=== PATIENT | female | born 1945 | race Caucasian/White ===

== ENCOUNTER → 2019-11-21 14:54 | Outpatient (BNVA) | payer MEDICARE, OTHER, SELFPAY | PROVIDERS: Family Provider Family Medicine; PCP Family Medicine; Visit Provider Urology | DX: N30.20 Other chronic cystitis without hematuria (principal) | CPT/HCPCS: 81001 ==

== ENCOUNTER 2020-09-23 12:38 | Outpatient (CLI) | payer MEDICARE, OTHER, SELFPAY ==
--- NOTE | 2020-09-23 12:48 | MR_ITS ---
WS: [id number] MRI HEAD WITHOUT CONTRAST TECHNIQUE: Sagittal T1, T2 axial, T2 axial FLAIR, axial and coronal T1 images, axial susceptibility w eighted imaging, axial diffusion weighted images, and coronal T2 images were obtained. CLINICAL INFORMATION: DYSPHAGIA, SUBACUTE COGNITIVE CHANGE COMPARISON: None. FINDINGS: Patchy partially restricted diffusion involving the left parietal occipital junction, subinsular seamus ex, and left anterior temporal lobe consistent with subacute ischemia. Small amount of hemosiderin in volving the left parietal occipital infarct bed. Small amount of T1 hyperintense laminar necrosis inv olving the left parietal cortex. Mild associated edema in the left parietal cortex. No mass effect or midline shift. Chronic lacunar infarct left olvera radiata. Mild small vessel changes. Moderate parenchymal volume loss. Mild small vessel changes in the johny. N ormal posterior fossa. Normal vascular flow voids at the skull base. No extra axial fluid collections . Normal optic chiasm and pituitary infundibulum. Temporal lobes and hippocampal formations are normal in appearance. Tiny punctate focus of hemosiderin in the left posterior parietal lobe. Paranasal sinu ses and mastoid air cells are well aerated. 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 Evidence of subacute ischemia involving the left parietal occipital junctio n with patchy foci extending into the left anterior temporal lobe and subinsula r cortex. 2. Small amount of hemosiderin within the left parietal occipital infarct. Mil d edema. No mass effect or midline shift. 3. Mild small vessel changes. Moderate parenchymal volume loss. 4. Chronic lacunar infarcts involving the left olvera radiata and genu of the corpus callosum. 5. Paranasal sinuses and mastoid air cells well aerated.
--- NOTE | 2020-09-23 12:56 | MR_ITS ---
WS: [id number] MRA HEAD TECHNIQUE: Axial 3-D TOF images obtained with axial images and axial, sagittal, and coronal 2-D refor matted images. CLINICAL INFORMATION: DYSPHAGIA/SUBACUTE COGNITIVE CHANGE COMPARISON: None. FINDINGS: Distal vertebral arteries are patent. Dominant distal left vertebral artery. Basilar artery is patent . Moderate segmental atheromatous disease involving both ASTHMA EDUCATOR territories. Distal vessels appear paten t. Both ICAs are patent at the skull base. Normal vascularity to the FAINA and MCA territories bilaterally . Mild stenosis distal left M1 segment. Hypoplastic right A1 segment. No evidence of high-grade proxi mal stenosis. MR/MR angio head wo con [id number] IMPRESSION: 1. Moderate multifocal segmental atheromatous disease involving both ASTHMA EDUCATOR luis antonio tories bilaterally. Distal vessels appear patent. 2. Symmetric vascularity to the FAINA and MCA territories bilaterally. 3. Absent right A1 segment. 4. Mild stenosis distal left M1 segment.
== END 2020-09-23 12:39 | disposition home or self-care (01) ==
LOC: RADWPI 12:42
PROVIDERS: PCP Family Medicine; Visit Provider Family Medicine
DX: R13.19 Other dysphagia (principal); R41.82 Altered mental status, unspecified; I63.81 Other cerebral infarction due to occlusion or stenosis of small artery
CPT/HCPCS: 70544; 70551

== ENCOUNTER 2020-10-10 08:18 | Outpatient (CLI) | payer MEDICARE, OTHER, SELFPAY ==
--- NOTE | 2020-10-10 08:20 | USCV_ITS ---
Angela Colvin Age: 75 Gender: F : 1945 Exam Date: 10/10/2020 08:58 Ordering Phys: Guerrero Carrillo MD Technologist: Agustin Alex Exam Location: [facility] [place] Indication: tia Risk Factors: None Previous Vascular Surgery: Right Brachial BP: / Left Brachial BP: / Right Left Velocity (cm/s) Spectral Plaque Velocity (cm/s) Spectral Plaque Syst/Diast Broadening Syst/Diast Broadening 55.50/ 17.10 Prox CCA 53.80 / 17.90 59.80/ 17.90 Mid CCA 55.50 / 17.10 67.50/ 21.40 Distal CCA 48.70 / 16.20 50.40/ 12.00 Prox ICA 43.90 / 17.30 64.90/ 14.50 Mid ICA 47.20 / 19.00 61.50/ 11.10 Distal ICA 54.20 / 21.70 52.10 ECA 51.50 0.96 ICA/CCA 0.98 Antegrade Vertebral Antegrade 43.00/ 20.00 cm/s 74.60/ 21.00 cm/s Bi Subclavian Bi 71.40 FINDINGS Minimal plaques at the bifurcation and proximal carotid arteries bilaterally. Intimal thickening in the common carotid arteries bilaterally. Antegrade flow of the vertebral arteries bilaterally Normal Doppler flow velocity in the left subclavian artery. Right subclavian artery was not identified. CONCLUSIONS Minimal plaques at the bifurcation and proximal carotid arteries bilaterally with less than 50% stenosis . Intimal thickening in the common carotid arteries bilaterally. No significant stenosis in the vertebral or external carotid arteries bilaterally Dr Daniel Dallas MD [facility] (Electronically Signed) Final Date: 10 October 2020 18:31 S
--- NOTE | 2020-10-10 08:20 | USCV_ITS ---
Vinicius Angela Age: 75 Gender: F : 1945 Exam Date: 10/10/2020 08:42 Ordering Phys: Guerrero Carrillo MD Technologist: Augstin Alex Exam Location: [facility] [place] Indication: TIA BP: 124 / 72 HR: 65 Rhythm: Sinus Technical Quality: Fair MEASUREMENTS (Male / Female) Normal Values 2D ECHO LV Diastolic Diameter PLAX 3.6 cm 4.2 - 5.9 / 3.9 - 5.3 cm LV Systolic Diameter PLAX 2.3 cm IVS Diastolic Thickness 1.6 cm 0.6 - 1.0 / 0.6 - 0.9 cm IVS Systolic Thickness 1.7 cm LVPW Diastolic Thickness 1.1 cm 0.6 - 1.0 / 0.6 - 0.9 cm LVPW Systolic Thickness 1.8 cm LVOT Diameter 2.0 cm LV Ejection Fraction 2D Teich 68.1 % LV Ejection Fraction MOD 2C 69.7 % LV Ejection Fraction 2C AL 69.6 % LA Diameter 3.6 cm LA Width 3.3 cm LA Height 4.7 cm RA Width 3.3 cm RA Height 5.0 cm Aorta at Sinotubular Diameter 2.5 cm M-MODE LV Diastolic Diameter MM 3.3 cm 4.2 - 5.9 / 3.9 - 5.3 cm LV Systolic Diameter MM 2.0 cm LV Ejection Fraction MM Teich 70.5 % IVS Diastolic Thickness MM 1.9 cm 0.6 - 1.0 / 0.6 - 0.9 cm IVS Systolic Thickness MM 2.0 cm LVPW Diastolic Thickness MM 1.8 cm 0.6 - 1.0 / 0.6 - 0.9 cm LVPW Systolic Thickness MM 2.1 cm RV Diastolic Diameter MM 2.3 cm Aortic Annulus Diameter 3.0 cm LA Ao Ratio MM 1.3 MV E Point Septal Separation 0.7 cm DOPPLER AV Peak Velocity 145.0 cm/s LVOT Peak Velocity 84.0 cm/s AV Area Cont Eq vti 1.6 cm squared AV Area Cont Eq pk 1.9 cm squared MV Area PHT 5.0 cm squared Mitral E to A Ratio 0.8 MV E' Velocity 31.0 cm/s Mitral E to MV E' Ratio 7.9 Mitral E to LV E' Lateral Ratio 8.1 Mitral E to LV E' Septal Ratio 7.8 TR Peak Velocity 195.0 cm/s TR Peak Gradient 15.2 mmHg TV Peak E Velocity 78.0 cm/s Right Atrial Pressure 3.0 mmHg Pulmonary Artery Systolic Pressu 18.2 mmHg PV Peak Velocity 98.0 cm/s FINDINGS Left Ventricle Normal left ventricular size. LV systolic function is normal with EF of 60 to 65%. No regional wall motion abnormalities are seen. Grade 1 diastolic dysfunction is noted. Right Ventricle The right ventricle is normal in size and function. Right Atrium The right atrium is normal in size. Left Atrium The left atrium is normal in size. Mitral Valve Structurally normal mitral valve without significant stenosis or prolapse. There is no mitral regurgitation. Aortic Valve Not well-visualized. Grossly appears thickened. No significant aortic stenosis. There is no aortic regurgitation. Tricuspid Valve Not well-visualized. No significant stenosis or regurgitation. Insufficient TR jet to calculate RVSP. Pulmonic Valve Not well-visualized. Pericardium Normal pericardium without effusion. Aorta Normal ascending aorta dimension. CONCLUSIONS LV systolic function is normal with EF of 60 to 65%. Grade 1 diastolic dysfunction is noted. No significant valvular heart disease is seen. No comparison studies are available. Michael Burroughs MD (Electronically Signed) Final Date: 18 October 2020 09:30 S
== END 2020-10-10 08:19 | disposition home or self-care (01) ==
LOC: US 08:18
PROVIDERS: PCP Family Medicine; Visit Provider Family Medicine
DX: G45.9 Transient cerebral ischemic attack, unspecified (principal)
CPT/HCPCS: 93306; 93880

== ENCOUNTER 2022-06-20 11:23 | Emergency (ER) | payer MEDICARE, OTHER, SELFPAY ==
[2022-06-20] VITALS (7 sets, daily range): BP systolic 122–146; BP diastolic 68–74; PULSE 78–88; RESP 16; TEMP 36.6; O2SAT 94–98; BMI 27.6
--- NOTE | 2022-06-20 11:26 | ECG_ITS ---
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 Measurements Intervals Elida Rate: 83 P: 27 [place]: 175 QRS: -18 QRSD: 74 T: 65 QT: 338 QTc: 398 Interpretive Statements SINUS RHYTHM LOW QRS VOLTAGE IN PRECORDIAL LEADS [QRS DEFLECTION < 1.0 mV IN CHEST LEADS] POSSIBLE ANTERIOR MYOCARDIAL INFARCTION , PROBABLY OLD [30 ms Q WAVE IN V3/V4, OR R < 0.2 mV IN V4] No previous ECG available for comparison Electronically Signed On 06-21-2022 22:01:15 CDT by Michael Burroughs M.D. [id number]
--- NOTE | 2022-06-20 11:26 | CTR_ITS ---
PROCEDURE INFORMATION: Exam: CTA Head With Contrast, Arteriography Exam date and time: 06/20/2022 11:19 AM Age: 76 years old Clinical indication: Speech disturbance and paralysis, transient of limb; Slurred speech; Additional info: Hemiparesis TECHNIQUE: Imaging protocol: Computed tomographic angiography of the head with contrast. Exam focused on the arteries. 3D rendering (Not supervised by radiologist): MIP and/or 3D reconstructed images were created by the technologist. Radiation optimization: All CT scans at this facility use at least one of these dose optimization techniques: automated exposure control; mA and/or kV adjustment per patient size (includes targeted exams where dose is matched to clinical indication); or iterative reconstruction. Contrast material: OMNI 350; Contrast volume: 100 ml; Contrast route: INTRAVENOUS (IV); COMPARISON: MR angio head wo con [id number] 09/23/2020 12:47 PM RADIATION DOSE METRICS: Total DLP (mGy-cm): 907.92 FINDINGS: ANTERIOR CIRCULATION: Right internal carotid artery: Intracranial segment is patent with no significant stenosis. No aneurysm. Right middle cerebral artery: No occlusion or significant stenosis. No aneurysm. Right anterior cerebral artery: There is aplastic right A1 segment. The right A2 segment is normal. Left internal carotid artery: Intracranial segment is patent with no significant stenosis. No aneurysm. Left middle cerebral artery: There is a cut off of the left middle cerebral artery seen on image 13/247 consistent with a clot. Enhancing vessels are seen in the left cerebral hemisphere likely from collaterals. Left anterior cerebral artery: No occlusion or significant stenosis. No aneurysm. POSTERIOR CIRCULATION: Right vertebral artery: No occlusion or significant stenosis. No aneurysm. Left vertebral artery: No occlusion or significant stenosis. No aneurysm. Basilar artery: No occlusion or significant stenosis. No aneurysm. Right posterior cerebral artery: No occlusion or significant stenosis. No aneurysm. Left posterior cerebral artery: No occlusion or significant stenosis. No aneurysm. Brain: Noncontrast CT demonstrates an old infarct left posterior parietal lobe. There is an old left basal ganglia infarct. There is moderate central and cortical atrophy with old posterior bilateral frontal infarcts. There is no intracranial bleed. Cerebral ventricles: No ventriculomegaly. Bones/joints: Unremarkable. No acute fracture. Soft tissues: Unremarkable. PROCEDURE INFORMATION: Exam: CTA Neck With Contrast Exam date and time: 06/20/2022 11:19 AM Age: 76 years old Clinical indication: Speech disturbance and paralysis, transient of limb; Slurred speech; Additional info: Hemiparesis TECHNIQUE: Imaging protocol: Computed tomographic angiography of the neck with contrast. 3D rendering (Not supervised by radiologist): MIP and/or 3D reconstructed images were created by the technologist. Radiation optimization: All CT scans at this facility use at least one of these dose optimization techniques: automated exposure control; mA and/or kV adjustment per patient size (includes targeted exams where dose is matched to clinical indication); or iterative reconstruction. Contrast material: OMNI 350; Contrast volume: 100 ml; Contrast route: INTRAVENOUS (IV); COMPARISON: MR angio head wo con [id number] 09/23/2020 12:47 PM RADIATION DOSE METRICS: Total DLP (mGy-cm): 454.18 FINDINGS: Right common carotid artery: No stenosis. No dissection or occlusion. Right internal carotid artery: No stenosis of the extracranial segment. No dissection or occlusion. Right external carotid artery: No occlusion or stenosis of the origin. Left common carotid artery: No stenosis. No dissection or occlusion. Left internal carotid artery: No stenosis of the extracranial segment. No dissection or occlusion. Left external carotid artery: No occlusion or stenosis of the origin. Right vertebral artery: No stenosis. No dissection or occlusion. Left vertebral artery: No stenosis. No dissection or occlusion. Right subclavian artery: Aberrant origin right subclavian artery. Soft tissues: Normal. No significant soft tissue swelling. Bones/joints: No acute fracture. 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 IMPRESSION: No evidence of a hemodynamically significant stenosis. REFERENCES: NASCET CRITERIA. The degree of stenosis in the cervical segment of the internal carotid artery is based on NASCET criteria. Normal is no stenosis. Mild is less than 50% stenosis. Moderate is 50-69% stenosis. Severe is 70% to 99% stenosis. Total occlusion is no detectable patent lumen.
[2022-06-20] MEDS: iohexol 350 mg/mL 100 mL Btl IV (11:35)
[2022-06-20 11:38] LABS: Glucose Point of Care 117 mg/dL (70-110)
[2022-06-20 11:47] LABS: Basophils % 0.4 %; Eosinophils # 0.3 10^3/uL (0.0-0.8); Eosinophils % 3.9 %; Hematocrit 37.6 % (37.0-47.0); Hemoglobin 12.6 g/dL (11.5-15.3); Lymphocytes # 2.4 10^3/uL (0.8-4.8); Lymphocytes % 34.4 %; Mean Corpuscular HGB Conc 33.5 g/dL (30.0-36.0); Mean Corpuscular Hemoglobin 35.1 pg (28.0-34.0); Mean Corpuscular Volume 104.7 fl (81-99); Mean Platelet Volume 9.1 fL (7.4-10.4); Monocytes # 0.9 10^3/uL (0.2-0.9); Monocytes % 12.8 %; Neutrophils # 3.42 10^3/uL (1.8-7.7); Neutrophils % 48.2 %; Nucleated Red Blood Cells % 0 %; Platelet Count 233 10^3/cmm (130-400); Red Blood Count 3.59 10^6/uL (4.1-5.3); Red Cell Distribution Width 12.5 % (12.1-15.1); White Blood Count 7.1 10^3/uL (4.0-10.0)
--- NOTE | 2022-06-20 11:49 | ED_ITS ---
HPI - General Adult General: Chief complaint: Neuro Symptoms/Deficit Stated complaint: stroke like symptoms Time Seen by Provider: 06/20/22 11:26 History of Present Illness: Patient is a 76-year-old female with a history of recent right breast biopsy, chronic cystitis who presents emergency room with new onset of right-sided weakness and language difficulty since 10:40 AM per EMS. However patient tells me that she has had the symptoms since 10 AM this morning. She denies any anticoagulation use. EMS, patient had interval improvement in symptoms with complete resolution of symptoms followed by resumption of symptoms. Onset:10am to 1040am Duration:ongoing Location:home Severity:severe Associated symptoms: Deny chest pain, dyspnea, nausea, rash, palpitations or vomiting Review of Systems Const: Denies: fever(s) or chills Eyes: Denies: change in vision ENMT: Denies: mouth pain Card: Denies: chest pain or palpitations Resp: Denies: dyspnea or non-productive cough GI: Denies: abdominal pain, nausea, vomiting or diarrhea : Denies: dysuria Musc: Denies: extremity pain Skin/Breast: Denies: rash or new lesions Neuro: Reports: weakness in extremities (+R sided weakness, +R facial droop,+language difficulty) Psych: Reports: other (Normal mood) Darren/Lymph: Denies: easy bruising PFSH ED 2 PFSH: Medical History Chronic cystitis Pelvic floor relaxation Surgical History Hx of cataract surgery Family History Father CAD (coronary artery disease) MOTHER UNKNOWN CAUSE Social History Smoking and tobacco status: never smoked Alcohol intake: never Adopted: No Caregiver/support person: No Lives independently: No Household members: spouse Marital status: Current occupational status: retired History of recent travel: No Physical Exam Const: COMMON NORMALS: alert HENMT: COMMON NORMALS: atraumatic HEAD & SCALP: atraumatic MOUTH: moist mucous membranes not abnormal Eye: COMMON NORMALS: EOMs intact bilaterally and conjunctivae normal CONJUNCTIVA: Yes conjunctivae normal Neck/C-Spine: COMMON NORMALS: full ROM and supple Resp: COMMON NORMALS: normal respiratory effort and clear to auscultation bilaterally AUSCULTATION: clear to auscultation bilaterally Cardio: COMMON NORMALS: regular rate RATE: regular rate GI: COMMON NORMALS: Soft to palpation and non-tender PALPATION: Yes Soft to palpation Extremity: COMMON NORMALS: full ROM Neuro: SENSORIUM/ORIENTATION: Yes alert OTHER: NEURO: NIHSS: 17 1. Level of Consciousness A) LOC Responsiveness 0 B) LOC Questions 1 C) LOC Commands 0 2. Horizontal Eye Movement 2 3. Visual field test 0 4. Facial Palsy 3 5. Motor Arm 4 6. Motor Leg 4 7. Limb Ataxia 1 8. Sensation 2 9. Language 2 10. Speech 1 11. Extinction and Inattention 1 PSYCH: Normal mood and affect. Psych: COMMON NORMALS: speech normal SPEECH: Yes normal speech MOOD & AFFECT: Yes euthymic mood Course Vital Signs: Vital signs: Vital Signs Temperature 97.9 F 06/20/22 11:34 Pulse Rate 88 06/20/22 11:34 Respiratory Rate 16 06/20/22 11:34 Blood Pressure 146/71 06/20/22 11:34 Pulse Oximetry 94 06/20/22 11:34 Oxygen Delivery Me thod 06/20/22 11:34 MDM - General Adult Medical Decision Making Patient is a 76-year-old female with a history of stroke in 2020, recent right breast biopsy, chronic cystitis who presents emergency room with new onset of right-sided weakness and language difficulty between 10am to 1040am. Patient is noted to have NIH stroke scale of 17. Case was discussed with [facility] neurology which recommended tPA as patient is within the window. Patient does not have any contraindication to tPA. She received TPA today in consultation of Dr. Naylor from Neurology at [facility]. Imaging studies showed new left M1 stroke. Case was discussed with Dr. Yeung who agreed with the transfer to [facility] for management of acute stroke after TPA. Disposition: Transfer to outside hospital Lab Data : 06/20/22 11:39 06/20/22 11:39 Radiology Impressions Head/Neck CTA 06/20/22 11:26 IMPRESSION: Old left-sided infarcts with occlusion of the left M1 segment. IMPRESSION: No evidence of a hemodynamically significant stenosis. REFERENCES: NASCET CRITERIA. The degree of stenosis in the cervical segment of the internal carotid artery is based on NASCET criteria. Normal is no stenosis. Mild is less than 50% stenosis. Moderate is 50-69% stenosis. Severe is 70% to 99% stenosis. Total occlusion is no detectable patent lumen. ADDENDUM: 06/20/22 1212 THIS REPORT CONTAINS FINDINGS THAT MAY BE CRITICAL TO PATIENT CARE. The findings were verbally communicated by me to JACLYN CABRERA at 12:09 PM FIRE ENGINE PUMP OPERATOR on 06/20/2022. The findings were acknowledged and understood. Laboratory Results WBC 7.1 10^3/uL (4.0-10.0) 06/20/22 11:39 RBC 3.59 10^6/uL (4.1-5.3) L 06/20/22 11:39 Hgb 12.6 g/dL (11.5-15.3) 06/20/22 11:39 Hct 37.6 % (37.0-47.0) 06/20/22 11:39 MCV 104.7 fl (81-99) H 06/20/22 11:39 MCH 35.1 pg (28.0-34.0) H 06/20/22 11:39 MCHC 33.5 g/dL (30.0-36.0) 06/20/22 11:39 RDW 12.5 % (12.1-15.1) 06/20/22 11:39 Plt Count 233 10^3/cmm (130-400) 06/20/22 11:39 MPV 9.1 fL (7.4-10.4) 06/20/22 11:39 Neut % (Auto) 48.2 % 06/20/22 11:39 Lymph % (Auto) 34.4 % 06/20/22 11:39 [place] % (Auto) 12.8 % 06/20/22 11:39 Eos % (Auto) 3.9 % 06/20/22 11:39 Baso % (Auto) 0.4 % 06/20/22 11:39 Neut # (Auto) 3.42 10^3/uL (1.8-7.7) 06/20/22 11:39 Lymph # (Auto) 2.4 10^3/uL (0.8-4.8) 06/20/22 11:39 [place] # (Auto) 0.9 10^3/uL (0.2-0.9) 06/20/22 11:39 Eos # (Auto) 0.3 10^3/uL (0.0-0.8) 06/20/22 11:39 Baso # (Auto) 0.0 10^3/uL (0.0-0.1) 06/20/22 11:39 Nucleated RBC % (auto) 0 % 06/20/22 11:39 Nucleated RBCs # 0.0 /100WBC 06/20/22 11:39 PT 14.90 SECONDS (12.1-14.9) 06/20/22 11:39 INR 1.14 (0.8-1.2) 06/20/22 11:39 APTT 27.9 SECONDS (23.9-36.7) 06/20/22 11:39 Sodium 124 mmol/L (136-145) L 06/20/22 11:39 Potassium 3.8 mmol/L (3.5-5.1) 06/20/22 11:39 Chloride 93 mmol/L (98-107) L 06/20/22 11:39 Carbon Dioxide 24 mmol/L (22-29) 06/20/22 11:39 Anion Gap 10.8 (5-19) 06/20/22 11:39 BUN 12 mg/dL (8-23) 06/20/22 11:39 Creatinine 0.8 mg/dL (0.5-0.9) 06/20/22 11:39 GFR Calculation Not Reportable 06/20/22 11:39 Glucose 116 mg/dL (65-115) H 06/20/22 11:39 POC Glucose 117 mg/dL (70-110) H 06/20/22 11:36 Calculated Osmolality 259 mOsm/kg (285-295) L 06/20/22 11:39 Calcium 8.8 mg/dL (8.5-10.5) 06/20/22 11:39 Total Bilirubin 0.5 mg/dL (0.15-1.2) 06/20/22 11:39 AST 20 U/L (0-32) 06/20/22 11:39 ALT 8 U/L (0-33) 06/20/22 11:39 Alkaline Phosphatase 73 U/L (35-105) 06/20/22 11:39 Total Protein 6.0 g/dL (6.6-8.7) L 06/20/22 11:39 Albumin 3.3 g/dL (3.5-5.2) L 06/20/22 11:39 Globulin 2.7 g/dL (1.3-4.6) 06/20/22 11:39 Imaging Data Other Imaging: Radiologist's impression: [employer] [place] [address] CT Scan Report Signed Patient: Angela Colvin Unit #: [id number] : 1945 Age/Sex: 76 / F ADM Date: 06/20/22 Loc: ER Room/Bed: Attending Dr: Ordering Provider/Ordering MD: Jaclyn Cabrera MD Date of Service: 06/20/22 Procedure(s): CT angio headneck* [id number] Accession Number(s): [id number] Report Number: [id number] PROCEDURE INFORMATION: Exam: CTA Head With Contrast, Arteriography Exam date and time: 06/20/2022 11:19 AM Age: 76 years old Clinical indication: Speech disturbance and paralysis, transient of limb; Slurred speech; Additional info: Hemiparesis TECHNIQUE: Imaging protocol: Computed tomographic angiography of the head with contrast. Exam focused on the arteries. 3D rendering (Not supervised by radiologist): MIP and/or 3D reconstructed images were created by the technologist. Radiation optimization: All CT scans at this facility use at least one of these dose optimization techniques: automated exposure control; mA and/or kV adjustment per patient size (includes targeted exams where dose is matched to clinical indication); or iterative reconstruction. Contrast material: OMNI 350; Contrast volume: 100 ml; Contrast route: INTRAVENOUS (IV);? COMPARISON: MR angio head wo con [id number] 09/23/2020 12:47 PM RADIATION DOSE METRICS: Total DLP (mGy-cm): 907.92 FINDINGS: ANTERIOR CIRCULATION: Right internal carotid artery: Intracranial segment is patent with no significant stenosis. No aneurysm. Right middle cerebral artery: No occlusion or significant stenosis. No aneurysm.? Right anterior cerebral artery: There is aplastic right A1 segment. The right A2 segment is normal. Left internal carotid artery: Intracranial segment is patent with no significant stenosis. No aneurysm. Left middle cerebral artery: There is a cut off of the left middle cerebral artery seen on image 13/247 consistent with a clot.? Enhancing vessels are seen in the left cerebral hemisphere likely from collaterals. Left anterior cerebral artery: No occlusion or significant stenosis. No aneurysm.? POSTERIOR CIRCULATION: Right vertebral artery: No occlusion or significant stenosis. No aneurysm.? Left vertebral artery: No occlusion or significant stenosis. No aneurysm.? Basilar artery: No occlusion or significant stenosis. No aneurysm. Right posterior cerebral artery: No occlusion or significant stenosis. No aneurysm.? Left posterior cerebral artery: No occlusion or significant stenosis. No aneurysm.? Brain: Noncontrast CT demonstrates an old infarct left posterior parietal lobe. There is an old left basal ganglia infarct. There is moderate central and cortical atrophy with old posterior bilateral frontal infarcts. There is no intracranial bleed. Cerebral ventricles: No ventriculomegaly. Bones/joints: Unremarkable. No acute fracture. Soft tissues: Unremarkable. PROCEDURE INFORMATION: Exam: CTA Neck With Contrast Exam date and time: 06/20/2022 11:19 AM Age: 76 years old Clinical indication: Speech disturbance and paralysis, transient of limb; Slurred speech; Additional info: Hemiparesis TECHNIQUE: Imaging protocol: Computed tomographic angiography of the neck with contrast. 3D rendering (Not supervised by radiologist): MIP and/or 3D reconstructed images were created by the technologist. Radiation optimization: All CT scans at this facility use at least one of these dose optimization techniques: automated exposure control; mA and/or kV adjustment per patient size (includes targeted exams where dose is matched to clinical indication); or iterative reconstruction. Contrast material: OMNI 350; Contrast volume: 100 ml; Contrast route: INTRAVENOUS (IV);? COMPARISON: MR angio head con [id number] 09/23/2020 12:47 PM RADIATION DOSE METRICS: Total DLP (mGy-cm): 454.18 FINDINGS: Right common carotid artery: No stenosis. No dissection or occlusion. Right internal carotid artery: No stenosis of the extracranial segment. No dissection or occlusion. Right external carotid artery: No occlusion or stenosis of the origin.? Left common carotid artery: No stenosis. No dissection or occlusion. Left internal carotid artery: No stenosis of the extracranial segment. No dissection or occlusion. Left external carotid artery: No occlusion or stenosis of the origin.? Right vertebral artery: No stenosis. No dissection or occlusion. Left vertebral artery: No stenosis. No dissection or occlusion. Right subclavian artery:? Aberrant origin right subclavian artery. Soft tissues: Normal. No significant soft tissue swelling. Bones/joints: No acute fracture. 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 CT/CT angio headneck* [id number] IMPRESSION: Old left-sided infarcts with occlusion of the left M1 segment. ? ? IMPRESSION: No evidence of a hemodynamically significant stenosis. ? REFERENCES: NASCET CRITERIA. The degree of stenosis in the cervical segment of the internal carotid artery is based on NASCET criteria. Normal is no stenosis. Mild is less than 50% stenosis. Moderate is 50-69% stenosis. Severe is 70% to 99% stenosis. Total occlusion is no detectable patent lumen. ? Dictated By: Nik Prabhakar MD Signed By: Nik Prabhakar MD Signed Date/Time: 06/20/22 1204 DD/ 1119 Critical Care Time Critical Care Time: Critical Care Time: Yes Total Critical Care Time: 35 Attestation: The high probability of a clinically significant, sudden or life threatening deterioration of the patient's neurological system(s) required my full and direct attention, intervention and personal management. The critical care time is as shown. This time is in addition to time spent performing any reported procedures but includes the following: [x] Data and vital sign review and interpretation [x] Patient assessment, examination and intervention [x] Documentation [x] Medication orders and management Discharge Plan Discharge Patient Disposition: Transfer to ED Clinical Impression: Acute ischemic stroke Condition: Stable Prescriptions: No Action cefuroxime axetil 500 mg tablet See Rx Instructions .ROUTE .COMPLEX Qty: 60 2RF Dose Instruction: Take 1 tablet by mouth twice daily Rx Instructions: Take 1 tablet by mouth twice daily Referrals: Guerrero Carrillo MD [Primary Care Provider] - Coding Level of Care Code ED Manager Pharmacy for Chg Fwd Exam Comprehensive
[2022-06-20 12:02] LABS: INR 1.14 (0.8-1.2); Partial Thromboplastin Time 27.9 SECONDS (23.9-36.7)
[2022-06-20 12:16] LABS: Alanine Aminotransferase 8 U/L (0-33); Albumin Level 3.3 g/dL (3.5-5.2); Alkaline Phosphatase 73 U/L (35-105); Anion Gap 10.8 (5-19); Aspartate Amino Transferase 20 U/L (0-32); Blood Urea Nitrogen 12 mg/dL (8-23); Calcium 8.8 mg/dL (8.5-10.5); Carbon Dioxide 24 mmol/L (22-29); Chloride 93 mmol/L (98-107); Globulin 2.7 g/dL (1.3-4.6); Glucose 116 mg/dL (65-115); Osmolality Calculated 259 mOsm/kg (285-295); Potassium 3.8 mmol/L (3.5-5.1); Sodium 124 mmol/L (136-145); Total Bilirubin 0.5 mg/dL (0.15-1.2)
--- NOTE | 2022-06-20 13:01 | PC.NURSE ---
stroke alert called 1108, pt arrived 1133, tpa started 1146
== END 2022-06-20 14:20 ==
PROVIDERS: Emergency Provider Emergency Medicine; PCP Family Medicine
DX: I63.89 Other cerebral infarction (principal)
CPT/HCPCS: 36416; 70496; 70498; 80053; 82962; 85025; 85610; 85730; 93005; 96365; 99285; J2997; Q9967

== ENCOUNTER 2022-10-06 19:52 | Observation (INO) | payer MEDICARE, OTHER, SELFPAY ==
[2022-10-06] VITALS (8 sets, daily range): BP systolic 144–155; BP diastolic 73–86; PULSE 72–94; RESP 14–20; TEMP 37.4; O2SAT 94–96; BMI 24.2
--- NOTE | 2022-10-06 19:57 | ED_ITS ---
HPI - Altered Mental Status General: Chief Complaint: Neuro Symptoms/Deficit Stated Complaint: Stroke 4\15 Unresponsive Time Seen by Provider: 10/06/22 19:57 Limitations: altered mental status History of Present Illness: Ms. Colvin is a 77-year-old lady with history of stroke 06/20/2022 post tPA administration and transfer to outside facility presented to the emergency department for altered mental status/strokelike symptoms. She was at her baseline health yesterday and definitively was normal last night however seem to not be feeling well. She slept most of the day and when she was reassessed by family she had marked change in speech with essentia lly word salad and not understandable words. Upon multiple attempts of clarification of clinical history patient probably was at baseline this morning at approximately 830 but did seem to not be feeling well. During lunch she was definitely abnormal and was essentially unable to eat. 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 Onset (ago): hour(s) Severity: severe Consistency of symptoms: Unknown Associated symptoms: Reports no associated symptoms Review of Systems General: Reports: ROS unobtainable due to mental status [facility] ED PFSH: Medical History Acute UTI Chronic cystitis Hypokalemia Pelvic floor relaxation Stroke-like symptom Surgical History Hx of cataract surgery Family History Father CAD (coronary artery disease) MOTHER UNKNOWN CAUSE Social History Smoking and tobacco status: never smoked Alcohol intake: never Adopted: No Caregiver/support person: No Lives independently: No Household members: spouse Marital status: Current occupational status: retired History of recent travel: No Physical Exam Const: COMMON NORMALS: alert GENERAL APPEARANCE: well developed and in distress (Appears distressed by symptoms) HENMT: COMMON NORMALS: normocephalic and atraumatic HEAD & SCALP: normocephalic and atraumatic THROAT: posterior oropharynx normal Eye: COMMON NORMALS: conjunctivae normal CONJUNCTIVA: Yes conjunctivae normal SCLERA: sclerae normal Neck/C-Spine: COMMON NORMALS: supple GENERAL: Yes trachea midline Resp: COMMON NORMALS: clear to auscultation bilaterally EFFORT & INSPECTION: Yes able to speak in complete sentences AUSCULTATION: clear to auscultation bilaterally Cardio: COMMON NORMALS: regular rate and regular rhythm RATE: regular rate RHYTHM: regular rhythm GI: COMMON NORMALS: Soft to palpation PALPATION: Yes Soft to palpation and No Tenderness to palpation present (GI) Extremity: GENERAL: Yes normal exam except as noted and No edema Neuro: SENSORIUM/ORIENTATION: Yes alert and Yes Orientation impaired OTHER: Limited exam as the patient has dense receptive and expressive symptoms. She is unable to answer questions or follow commands. Words are nonsensical and mispronounce. There is no obvious cranial nerve deficits otherwise. Visual smith appear intact as do EOMs. The patient will regard to voice appropriately. Right side flaccid paralysis upper and lower extremity with sensory changes as able to test. Patient does appear to move left upper extremity and left lower extremity though testing is limited secondary to inability to follow/understand commands. NIHSS 15 Psych: COMMON NORMALS: mental status grossly normal and Normal thought process present THOUGHT PROCESS: Normal thought process present Course Vital Signs: Vital signs: Vital Signs Temperature 98.5 F 10/07/22 07:38 Pulse Rate 87 10/07/22 11:32 Respiratory Rate 18 10/07/22 11:32 Blood Pressure 130/67 10/07/22 07:38 Pulse Oximetry 94 10/07/22 11:32 Oxygen Delivery Me thod 10/07/22 08:55 MDM - Altered Mental Status Medical Decision Making 77-year-old lady presenting with neurologic symptoms. Very limited history and exam. NIHSS 14. Patient is not a tPA candidate given duration of symptoms. CT head without evidence of acute intracranial hemorrhage. Labs with no leukocytosis, normal hemoglobin. Mild hypokalemia. Urinalysis concerning for urinary tract infection. Chest x-ray with no lobar consolidation or pneumothorax. CTA head and neck with chronic changes without acute findings. Patient treated with antibiotics. Given reported severity of symptoms compared to baseline most likely etiology of patient's symptoms is recrudescence with complicated UTI. The results of ED evaluation were discussed with the patient's family including plan for admission due to requirement for level of care not available if discharged to prevent significant worsening/deterioration. Patient's family agreeable with plan. Discussed with hospitalist service who was agreeable to admit patient. Medical Records I reviewed the patient's medical records. Lab Data I reviewed the patient's lab results. 10/06/22 20:10 10/06/22 20:10 Radiology Impressions Head/Neck CTA 10/06/22 20:02 IMPRESSION: 1. Redemonstrated chronic proximal left MCA occlusion with very minimal enhancement of left MCA branches. 2. Right posterior cerebral artery P2 segment severe focal stenosis. 3. Diffuse atrophy, old left hemispheric infarcts and chronic/remote ischemic changes without evidence of superimposed acute infarct, hemorrhage or mass-effect at this time. ASSESSMENT: ASPECTS ([place] Stroke Program Early CT Score) is 10. IMPRESSION: No evidence of significant carotid or vertebral arterial vascular disease at this time. REFERENCES: NASCET CRITERIA. The degree of stenosis in the cervical segment of the internal carotid artery is based on NASCET criteria. Normal is no stenosis. Mild is less than 50% stenosis. Moderate is 50-69% stenosis. Severe is 70% to 99% stenosis. Total occlusion is no detectable patent lumen. Chest X-Ray 10/06/22 20:06 IMPRESSION: 1. Cardiomegaly. 2. Low lung volumes with minimal left basilar atelectasis. Laboratory Results WBC 7.6 10^3/uL (4.0-10.0) 10/06/22 20:10 RBC 4.32 10^6/uL (4.1-5.3) 10/06/22 20:10 Hgb 13.8 g/dL (11.5-15.3) 10/06/22 20:10 Hct 43.2 % (37.0-47.0) 10/06/22 20:10 MCV 100.0 fl (81-99) H 10/06/22 20:10 MCH 31.9 pg (28.0-34.0) 10/06/22 20:10 MCHC 31.9 g/dL (30.0-36.0) 10/06/22 20:10 RDW 14.7 % (12.1-15.1) 10/06/22 20:10 Plt Count 213 10^3/cmm (130-400) 10/06/22 20:10 MPV 9.2 fL (7.4-10.4) 10/06/22 20:10 Neut % (Auto) 43.3 % 10/06/22 20:10 Lymph % (Auto) 40.8 % 10/06/22 20:10 [place] % (Auto) 10.9 % 10/06/22 20:10 Eos % (Auto) 4.3 % 10/06/22 20:10 Baso % (Auto) 0.4 % 10/06/22 20:10 Neut # (Auto) 3.29 10^3/uL (1.8-7.7) 10/06/22 20:10 Lymph # (Auto) 3.1 10^3/uL (0.8-4.8) 10/06/22 20:10 [place] # (Auto) 0.8 10^3/uL (0.2-0.9) 10/06/22 20:10 Eos # (Auto) 0.3 10^3/uL (0.0-0.8) 10/06/22 20:10 Baso # (Auto) 0.0 10^3/uL (0.0-0.1) 10/06/22 20:10 Nucleated RBC % (auto) 0 % 10/06/22 20:10 Nucleated RBCs # 0.0 /100WBC 10/06/22 20:10 PT 14.80 SECONDS (12.1-14.9) 10/06/22 20:10 INR 1.13 (0.8-1.2) 10/06/22 20:10 APTT 28.6 SECONDS (23.9-36.7) 10/06/22 20:10 Sodium 142 mmol/L (136-145) 10/06/22 20:10 Potassium 3.0 mmol/L (3.5-5.1) L 10/06/22 20:10 Chloride 105 mmol/L (98-107) 10/06/22 20:10 Carbon Dioxide 27 mmol/L (22-29) 10/06/22 20:10 Anion Gap 13.0 (5-19) 10/06/22 20:10 BUN 8 mg/dL (8-23) 10/06/22 20:10 Creatinine 0.6 mg/dL (0.5-0.9) 10/06/22 20:10 GFR Calculation Not Reportable 10/06/22 20:10 Glucose 117 mg/dL (65-115) H 10/06/22 20:10 Calculated Osmolality 293 mOsm/kg (285-295) 10/06/22 20:10 Calcium 9.6 mg/dL (8.5-10.5) 10/06/22 20:10 Magnesium 1.8 mg/dL (1.7-2.3) 10/06/22 20:10 Total Bilirubin 0.5 mg/dL (0.15-1.2) 10/06/22 20:10 AST 13 U/L (0-32) 10/06/22 20:10 ALT 6 U/L (0-33) 10/06/22 20:10 Alkaline Phosphatase 99 U/L (35-105) 10/06/22 20:10 Total Protein 7.3 g/dL (6.6-8.7) 10/06/22 20:10 Albumin 3.8 g/dL (3.5-5.2) 10/06/22 20:10 Globulin 3.5 g/dL (1.3-4.6) 10/06/22 20:10 Vitamin B12 592 pg/mL (232-1245) 10/06/22 20:10 Urine Color Yellow (Yellow) 10/06/22 21:12 Urine Appearance Sl hazy (CLEAR) A 10/06/22 21:12 Urine pH 7 (5-7) 10/06/22 21:12 Ur Specific [place] 1.010 (1.005-1.030) 10/06/22 21:12 Urine Protein Neg (Negative) 10/06/22 21:12 Urine Glucose (UA) Norm (Normal) 10/06/22 21:12 Urine Ketones Negative (Negative) 10/06/22 21:12 Urine Blood 2+ (Negative) H 10/06/22 21:12 Urine Nitrate Positive (Negative) H 10/06/22 21:12 Urine Bilirubin Neg (Negative) 10/06/22 21:12 Urine Urobilinogen Norm mg/dL (Negative) 10/06/22 21:12 Ur Leukocyte Esterase 2+ (Negative) H 10/06/22 21:12 Urine RBC 10-15 /hpf (0-2) H 10/06/22 21:12 Urine WBC 80-100 /hpf (0-5) H 10/06/22 21:12 Ur Squamous Epith Cells 0-4 /hpf (0-5) H 10/06/22 21:12 Amorphous Sediment Not Reportable 10/06/22 21:12 Urine Bacteria 3+ /hpf (NONE) H 10/06/22 21:12 Urine Opiates Screen Positive ng/mL (Negative) H 10/06/22 21:12 Ur Barbiturates Screen Negative ng/mL (Negative) 10/06/22 21:12 Ur Phencyclidine Scrn Negative ng/mL (Negative) 10/06/22 21:12 Ur Amphetamines Screen Negative ng/mL (Negative) 10/06/22 21:12 U Benzodiazepines Scrn Negative ng/mL (Negative) 10/06/22 21:12 Urine Cocaine Screen Negative ng/mL (Negative) 10/06/22 21:12 U Marijuana (THC) Screen Negative ng/mL (Negative) 10/06/22 21:12 Influenza Type A Ag negative (Negative) 10/06/22 20:35 Influenza Type B Ag negative (Negative) 10/06/22 20:35 SARS-CoV-2 Ag (Rapid) negative (Negative) 10/06/22 20:35 Critical Care Time Critical Care Time: Critical Care Time: Yes Total Critical Care Time: 35 Attestation: Due to a high probability of clinically significant, possibly life threatening deterioration, the patient required my highest level of attention and preparedness to intervene emergently and I personally spent this critical care time directly and personally managing the patient. This critical care time included obtaining a history; examining the patient; pulse oximetry; ordering and review of laboratory and imaging studies; arranging urgent treatment with development of a management plan; evaluation of patient's response to treatment; frequent reassessment; and, discussions with other providers as applicable. It was exclusive of separately billable procedures. Primary system involved is neuro Discharge Plan Discharge Patient Disposition: Placed in Observation Admit Provider: Myrtle Gurrola Clinical Impression: Stroke-like symptom, Acute UTI, Hypokalemia Coding Level of Care Code ED Pr Specialist for Daniel Saldana
--- NOTE | 2022-10-06 20:02 | CTR_ITS ---
PROCEDURE INFORMATION: Exam: CTA Head Without And With Contrast, Arteriography Exam date and time: 10/06/2022 8:20 PM Age: 77 years old Clinical indication: Stroke-like symptoms; Altered mental status/memory loss and speech disturbance; Additional info: Stroke like symptoms, lkw 10/05 2299 TECHNIQUE: Imaging protocol: Computed tomographic angiography of the head without and with contrast. Exam focused on the arteries. 3D rendering (Not supervised by radiologist): MIP and/or 3D reconstructed images were created by the technologist. Radiation optimization: All CT scans at this facility use at least one of these dose optimization techniques: automated exposure control; mA and/or kV adjustment per patient size (includes targeted exams where dose is matched to clinical indication); or iterative reconstruction. Contrast material: OMNI 350; Contrast volume: 100 ml; Contrast route: INTRAVENOUS (IV); Other protocol: This patient has received [address] and 0 known cardiac nuclear medicine studies in the 12 months prior to the current study. Other technique: STROKE PROTOCOL was implemented. COMPARISON: 1. CT angio headneck* [id number] 06/20/2022 11:19 AM 2. MR angio head wo con [id number] 09/23/2020 12:47 PM RADIATION DOSE METRICS: Total DLP (mGy-cm): 969.27 FINDINGS: ANTERIOR CIRCULATION: Right internal carotid artery: Intracranial segment is patent with no significant stenosis or occlusion. No aneurysm. Right middle cerebral artery: No occlusion or significant stenosis. No aneurysm. Right anterior cerebral artery: Anatomic variant hypoplastic right FAINA A1 segment with the right anterior cerebral artery filling from the left via the anterior communicating artery. Left internal carotid artery: Intracranial segment is patent with no significant stenosis. No aneurysm. Left middle cerebral artery: Redemonstrated chronic proximal left MCA occlusion with very minimal enhancement of left MCA branches. Left anterior cerebral artery: No occlusion or significant stenosis. No aneurysm. POSTERIOR CIRCULATION: Right vertebral artery: Patent enhancing small caliber nondominant distal right vertebral artery. No occlusion. No aneurysm. Left vertebral artery: Patent enhancing dominant distal left vertebral artery. No occlusion or significant stenosis. No aneurysm Basilar artery: No occlusion or significant stenosis. No aneurysm. Right posterior cerebral artery: Right posterior cerebral artery P2 segment severe focal stenosis. No occlusion. No aneurysm. Left posterior cerebral artery: No occlusion or significant stenosis. No aneurysm. HEAD: Brain: Prominence of the sulci consistent with diffuse atrophy. No mass effect or midline shift. Periventricular and subcortical white matter low-attenuation consistent with chronic small vessel ischemic changes. 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 Old left basal ganglia and caudate head infarct with encephalomalacia. Left thalamus and right frontal white matter/corpus callosum remote lacunar infarcts. No evidence of acute intracranial hemorrhage. Cerebral ventricles: Ventricular prominence proportional to sulci. Left lateral ventricle compensatory dilatation. Bones/joints: Unremarkable. No acute fracture. Paranasal sinuses: No significant or acute findings. No air fluid levels. Mastoid air cells: No acute abnormality. No significant mastoid effusion. Soft tissues: No significant soft tissue abnormalities. PROCEDURE INFORMATION: Exam: CTA Neck With Contrast Exam date and time: 10/06/2022 8:20 PM Age: 77 years old Clinical indication: Stroke-like symptoms; Altered mental status/memory loss and speech disturbance; Additional info: Stroke like symptoms, [facility] 10/05 2300 TECHNIQUE: Imaging protocol: Computed tomographic angiography of the neck with contrast. 3D rendering (Not supervised by radiologist): MIP and/or 3D reconstructed images were created by the technologist. Radiation optimization: All CT scans at this facility use at least one of these dose optimization techniques: automated exposure control; mA and/or kV adjustment per patient size (includes targeted exams where dose is matched to clinical indication); or iterative reconstruction. Contrast material: OMNI 350; Contrast volume: 100 ml; Contrast route: INTRAVENOUS (IV); Other protocol: This patient has received [address] and 0 known cardiac nuclear medicine studies in the 12 months prior to the current study. [facility] [id number] 06/20/2022 11:19 AM RADIATION DOSE METRICS: Total DLP (mGy-cm): 969.27 FINDINGS: Right common carotid artery: Patent enhancing right common carotid artery. No significant stenosis. No dissection or occlusion. Right internal carotid artery: No acute abnormality. Minimal calcific plaque along the right carotid bifurcation. Extracranial segment is patent without stenosis. No dissection or occlusion. Right external carotid artery: Patent enhancing right external carotid artery. No occlusion or significant stenosis. Left common carotid artery: Patent enhancing left common carotid artery. No significant stenosis. No dissection or occlusion. Left internal carotid artery: No acute abnormality. Minimal to mild calcific plaque along the left carotid bifurcation. Extracranial segment is patent without stenosis. No dissection or occlusion. Left external carotid artery: Patent enhancing left external carotid artery. No occlusion or significant stenosis. Right vertebral artery: Patent enhancing small caliber nondominant right vertebral artery without significant stenosis. No dissection or occlusion. Left vertebral artery: Patent enhancing dominant left vertebral artery without significant stenosis. No dissection or occlusion. Right subclavian artery: Anatomic variant aberrant right subclavian artery. Soft tissues: No significant soft tissue abnormalities. Bones/joints: Cervical spondylosis and degenerative bony changes. CT/CT angio headneck* [id number] IMPRESSION: 1. Redemonstrated chronic proximal left MCA occlusion with very minimal enhancement of left MCA branches. 2. Right posterior cerebral artery P2 segment severe focal stenosis. 3. Diffuse atrophy, old left hemispheric infarcts and chronic/remote ischemic changes without evidence of superimposed acute infarct, hemorrhage or mass-effect at this time. ASSESSMENT: ASPECTS ([place] Stroke Program Early CT Score) is 10. IMPRESSION: No evidence of significant carotid or vertebral arterial vascular disease at this time. REFERENCES: NASCET CRITERIA. The degree of stenosis in the cervical segment of the internal carotid artery is based on NASCET criteria. Normal is no stenosis. Mild is less than 50% stenosis. Moderate is 50-69% stenosis. Severe is 70% to 99% stenosis. Total occlusion is no detectable patent lumen.
--- NOTE | 2022-10-06 20:04 | ECG_ITS ---
[facility] Test Date: 2022-10-06 Pat Name: Angela Colvin Department: Room: Gender: Female Senior Accountant: : 1945 Requested By: Sung Garduno Order Number: [id number] Izabel MD: Gretel Zaragoza M.D. Measurements Intervals [place] Rate: 77 P: 41 VT: 187 QRS: -30 QRSD: 79 T: 17 QT: 370 QTc: 420 Interpretive Statements SINUS RHYTHM LOW QRS VOLTAGE IN PRECORDIAL LEADS [QRS DEFLECTION < 1.0 mV IN CHEST LEADS] POSSIBLE ANTERIOR MYOCARDIAL INFARCTION , OF INDETERMINATE AGE [30 ms Q WAVE IN V3/V4, OR R < 0.2 mV IN V4] Compared to ECG 06/20/2022 11:40:17 No significant changes Electronically Signed On 10-07-2022 1:52:26 [employer] by Gretel Zaragoza M.D. [id number]
--- NOTE | 2022-10-06 20:06 | XRR_ITS ---
PROCEDURE INFORMATION: Exam: XR Chest Exam date and time: 10/06/2022 8:26 PM Age: 77 years old Clinical indication: Other: Stroke; Additional info: Stroke symptoms TECHNIQUE: Imaging protocol: Radiologic exam of the chest. Views: 1 view. COMPARISON: CT angio headneck* [id number] 10/06/2022 8:20 PM FINDINGS: Lungs: Low lung volumes with minimal left basilar atelectasis. Pleural spaces: No significant costophrenic angle blunting. No pneumothorax. Heart/Mediastinum: Heart size appears enlarged. Vasculature: Atherosclerotic tortuosity of the thoracic aorta. Diaphragm: Mild right hemidiaphragm elevation. Bones/joints: Bony demineralization and degenerative bony changes. XR/XR chest 1V portable [id number] IMPRESSION: 1. Cardiomegaly. 2. Low lung volumes with minimal left basilar atelectasis.
--- NOTE | 2022-10-06 20:15 | PC.NURSE ---
to CT scan
--- NOTE | 2022-10-06 20:16 | PC.NURSE ---
pt on bedside court monitor
[2022-10-06] MEDS: iohexol 350 mg/mL 500 mL Btl (per mL) IV (20:24)
[2022-10-06 20:26] LABS: Basophils % 0.4 %; Eosinophils # 0.3 10^3/uL (0.0-0.8); Eosinophils % 4.3 %; Hematocrit 43.2 % (37.0-47.0); Hemoglobin 13.8 g/dL (11.5-15.3); Lymphocytes # 3.1 10^3/uL (0.8-4.8); Lymphocytes % 40.8 %; Mean Corpuscular HGB Conc 31.9 g/dL (30.0-36.0); Mean Corpuscular Hemoglobin 31.9 pg (28.0-34.0); Mean Platelet Volume 9.2 fL (7.4-10.4); Monocytes # 0.8 10^3/uL (0.2-0.9); Monocytes % 10.9 %; Neutrophils # 3.29 10^3/uL (1.8-7.7); Neutrophils % 43.3 %; Nucleated Red Blood Cells % 0 %; Platelet Count 213 10^3/cmm (130-400); Red Blood Count 4.32 10^6/uL (4.1-5.3); Red Cell Distribution Width 14.7 % (12.1-15.1); White Blood Count 7.6 10^3/uL (4.0-10.0)
[2022-10-06 20:41] LABS: INR 1.13 (0.8-1.2)
[2022-10-06 20:42] LABS: Partial Thromboplastin Time 28.6 SECONDS (23.9-36.7)
[2022-10-06 20:46] LABS: Alanine Aminotransferase 6 U/L (0-33); Albumin Level 3.8 g/dL (3.5-5.2); Alkaline Phosphatase 99 U/L (35-105); Aspartate Amino Transferase 13 U/L (0-32); Blood Urea Nitrogen 8 mg/dL (8-23); Calcium 9.6 mg/dL (8.5-10.5); Carbon Dioxide 27 mmol/L (22-29); Chloride 105 mmol/L (98-107); Globulin 3.5 g/dL (1.3-4.6); Glucose 117 mg/dL (65-115); Osmolality Calculated 293 mOsm/kg (285-295); Sodium 142 mmol/L (136-145); Total Bilirubin 0.5 mg/dL (0.15-1.2); Total Protein 7.3 g/dL (6.6-8.7)
[2022-10-06 20:57] LABS: Influenza A by IFA negative (Negative); Influenza B by IFA negative (Negative); SARS Covid-2 Antigen negative (Negative)
[2022-10-06 21:05] LABS: Magnesium 1.8 mg/dL (1.7-2.3)
[2022-10-06 21:31] LABS: Protein Urine Neg (Negative); Urine Appearance SL Hazy (CLEAR); Urine Color Yellow (Yellow); pH Urine 7 (5-7)
[2022-10-06 21:32] LABS: Add Urine Microscopic? YES; Amphetamines Screen Urine Negative (Negative); Barbiturates Screen Urine Negative (Negative); Benzodiazepines Screen Urine Negative (Negative); Bilirubin Urine Neg (Negative); Blood Urine 2+ (Negative); Cocaine Screen Urine Negative (Negative); Glucose Urine UA Norm (Normal); Ketones Urine Negative (Negative); Leukocyte Esterase Urine 2+ (Negative); Nitrate Urine Positive (Negative); Opiate Screen Urine Positive (Negative); PCP Screen Urine Negative (Negative); THC Screen Urine Negative (Negative); Urobilinogen Urine Norm (Negative)
[2022-10-06 21:34] LABS: Add Urine Culture? Yes; Bacteria Urine 3+ /hpf; Squamous Epithelial Cell Urine 0-4 /hpf (0-5); WBC Urine 80-100 /hpf (0-5)
[2022-10-06] MEDS: lidocaine 1% 5 ML in potassium chloride premix 100 ML 26.25 ML IV (21:46)
[2022-10-06] MEDS: sodium chloride 0.9% 1,000 ML 100 ML IV (21:46)
--- NOTE | 2022-10-06 22:17 | PM.HP ---
Providers/Chief Complaint Primary Care Provider: Guerrero Carrillo MD Chief Complaint: Stroke 4\15 Unresponsive History of Present Illness Angela Colvin is a 77 year old female who had a stroke in June last year was transferred to [facility] where endovascular intervention failed, she was discharged home with home health services, aspirin, atorvastatin, she does have home health services, was brought in because of worsening confusion. is at the bedside who is stating that she has left-sided residual weakness with and word finding difficulty from previous stroke. stating that she usually wakes up around 7 AM but today she woke up around 830, he fixed her breakfast, she ate okay without any aspiration and then went back to bed and slept until lunchtime, when lunch was fixed, again she woke up ate a little bit and then slept in her recliner, around suppertime when he tried to wake her up she was very confused and lethargic could not keep her head still at that time he brought her to the hospital. In the ER she has been diagnosed with UTI. CT head and neck is showing chronic changes. Patient is expressing word finding difficulty, not able to carry conversation, as per the is at her baseline She is full code Home medications reviewed wanting to stay with her overnight Review of Systems Const: Denies: fever(s) Eyes: Denies: change in vision ENMT: Denies: throat pain Card: Denies: chest pain Resp: Denies: dyspnea GI: Denies: abdominal pain : Denies: oliguria Musc: Denies: neck pain Skin/Breast: Denies: rash Neuro: Denies: headache(s) Psych: Denies: anxiety Endo: Denies: polyuria Darren/Lymph: Denies: easy bruising All/Imm: Denies: urticaria Medications/Allergies Home Medications Medication Instructions Recorded Confirmed Last Taken Type cefuroxime axetil 500 mg tablet See Rx Instructions .Route 05/04/22 Unknown Rx .COMPLEX #60 tabs Allergies Allergy/AdvReac Type Severity Reaction Status Date / Time No Known Allergies Allergy Unverified 11/17/19 18:06 PFSH Acute PFSH: Medical History Chronic cystitis Pelvic floor relaxation Surgical History Hx of cataract surgery Family History Father CAD (coronary artery disease) MOTHER UNKNOWN CAUSE Social History Smoking and tobacco status: never smoked Alcohol intake: never Adopted: No Caregiver/support person: No Lives independently: No Household members: spouse Marital status: Current occupational status: retired History of recent travel: No Vitals/I&O/Wt Last Vital Signs Temp 99.4 F 10/06/22 20:03 Pulse 72 10/06/22 21:15 Resp 14 10/06/22 21:15 BP 150/81 10/06/22 21:15 Pulse Ox 95 10/06/22 21:15 O2 Del Method 10/06/22 21:15 Weight last 48 hrs Weight 63.957 kg Physical Exam Narrative: Right-sided dense weakness Word finding difficulty Able to make eye contact Tries to answer simple questions however they are not appropriate Pleasantly confused at the bedside Dehydrated S1, S2 Hemodynamically stable Currently on room air Patient lifted her left hand when I try to shake and with her Dry mucous membranes Data 10/06/22 20:10 10/06/22 20:10 A&P Assessment and plan (1) Acute UTI: (2) Hypokalemia: Plan Acute delirium with underlying dementia Related to dehydration and UTI Chronic right-sided residual weakness Neck CTA head and neck did not show acute vascular pathology Hydrate with IV fluids Start antibiotics Follow-up with urine culture She is not septic Currently doing well on room air She has received ceftriaxone in the ER Request records from [facility] Physical therapy in the morning She does have home health services at home Living with her Full code Dysphagia diet will require speech therapy Attestations Medical Necessity Statement*: Anticipating discharge within 48 hours Time Spent in Patient Care: 40 Coding Level of Care Code Acute Code for Chg Fwd Diagnoses Acute UTI N39.0 Hypokalemia E87.6
--- NOTE | 2022-10-06 22:19 | PC.NURSE ---
Report from Regina RN. Patient alert, reponds to verbal stimuli. at bedside updated on plan of care. IV remains patent.
[2022-10-06] MEDS: cefTRIAXone 1,000 MG in sodium chloride 0.9% (plus) 50 ML 100 MG IV (22:26)
[2022-10-07 00:34] LABS: Vitamin B12 592 pg/mL (232-1245)
--- NOTE | 2022-10-07 00:43 | PC.NURSE ---
ADMIT NOTE Pt was received to room from ER. Is alert. Speech slurred with R facial droop. Right side flaccid. says this is pts baseline since had a stroke in June. She has been receiving rehab and had been making progress and has had some movement of the R leg. He says normally pt has trouble expressing herself and finding her words. Today pt was sleeping alot then started having garbled speech. She follows most commands but at times doesn't appear to understand just what she is asked to do. says she has not had any difficulty with swallowing. Went ahead and administered water with bedside dysphagia test. Facial asymmetry is baseline. IV fluids at 100ml/hr rate with K-rider infusing. Received IV antibiotics in the ER. will be staying with pt
[2022-10-07] MEDS: enoxaparin 40 mg/0.4 mL Syringe SUBCUT (00:58)
[2022-10-07 02:35] LABS: Anion Gap 13.6 (5-19); Blood Urea Nitrogen 7 mg/dL (8-23); Calcium 8.8 mg/dL (8.5-10.5); Carbon Dioxide 23 mmol/L (22-29); Chloride 108 mmol/L (98-107); Glucose 105 mg/dL (65-115); Magnesium 1.8 mg/dL (1.7-2.3); Osmolality Calculated 290 mOsm/kg (285-295); Potassium 3.6 mmol/L (3.5-5.1); Sodium 141 mmol/L (136-145)
[2022-10-07 04:01] VITALS: BP 134/69; PULSE 79; RESP 15; TEMP 36.8; O2SAT 90
[2022-10-07 07:38] VITALS: BP 130/67; PULSE 82; RESP 18; TEMP 36.9; O2SAT 91
[2022-10-07] MEDS: baclofen 10 mg Tablet PO (08:46)
[2022-10-07] MEDS: aspirin 81 mg EC Tablet PO (08:46)
[2022-10-07] MEDS: atorvastatin 40 mg Tablet PO (08:46)
[2022-10-07] MEDS: lisinopril 10 mg Tablet PO (08:46)
[2022-10-07 08:55] VITALS: PULSE 87; RESP 18; O2SAT 94
--- NOTE | 2022-10-07 10:02 | PM.DCS ---
Discharge Providers Date of Admission: 10/06/22 22:18 Date of Discharge: October 07, 2022 Attending Provider at Admission: Myrtle Gurrola MD Attending Provider at Discharge: Wei Trujillo MD Primary Care Provider: Guerrero Carrillo MD Diagnoses at Discharge Discharge Diagnosis (1) Acute UTI: Status: Acute (2) Hypokalemia: Status: Acute Reason for Visit Reason for Visit: Stroke 4\15 Unresponsive Hospital Course Hospital Course HPI: Dr: Myrtle Gurrola MD Angela Colvin is a 77 year old female who had a stroke in June last year was transferred to [facility] where endovascular intervention failed, she was discharged home with home health services, aspirin, atorvastatin, she does have home health services, was brought in because of worsening confusion.? is at the bedside who is stating that she has left-sided residual weakness with and word finding difficulty from previous stroke.? stating that she usually wakes up around 7 AM but today she woke up around 830, he fixed her breakfast, she ate okay without any aspiration and then went back to bed and slept until lunchtime, when lunch was fixed, again she woke up ate a little bit and then slept in her recliner, around suppertime when he tried to wake her up she was very confused and lethargic could not keep her head still at that time he brought her to the hospital.? In the ER she has been diagnosed with UTI.? CT head and neck is showing chronic changes. Patient is expressing word finding difficulty, not able to carry conversation, as per the is at her baseline. Hospital course: Patient was admitted for the management of UTI, as well as hypokalemia, she was started on ceftriaxone, Urine culture is pending, she was afebrile overnight hemodynamically stable, progressing towards her baseline mentation, she was advised to stay overnight and continue with IV antibiotics, but she wanted to go home, given her overall clinical improvement, she was discharged home on p.o. levofloxacin for additional 5 days, to complete the course of UTI. She will continue to follow-up with her PCP as outpatient. Physical Exam Const: COMMON NORMALS: patient oriented x3 HENMT: COMMON NORMALS: normocephalic and atraumatic HEAD & SCALP: normocephalic and atraumatic Resp: COMMON NORMALS: normal respiratory effort, No retractions, No use of accessory muscles and clear to auscultation bilaterally EFFORT & INSPECTION: Yes symmetric chest movement AUSCULTATION: clear to auscultation bilaterally Cardio: COMMON NORMALS: regular rate, regular rhythm, S1 normal heart sound present, S2 normal heart sound present, No gallops present (Cardio), No murmurs present (Cardio), No rub (Cardio) and Peripheral pulses 2+ throughout RATE: regular rate RHYTHM: regular rhythm HEART SOUNDS: S1 normal heart sound present and S2 normal heart sound present PERIPHERAL PULSES: Peripheral pulses 2+ throughout GI: COMMON NORMALS: Normal to inspection, nondistended, normoactive bowel sounds present, Soft to palpation, non-tender, No hepatosplenomegaly present and no masses AUSCULTATION: Yes normoactive bowel sounds PALPATION: Yes Soft to palpation and Yes No hepatosplenomegaly present RECTAL EXAM: deferred Extremity: COMMON NORMALS: no clubbing, cyanosis or edema and no pedal edema Neuro: COMMON NORMALS: patient oriented x3 Discharge Data Studies Completed and Pending Completed Studies During Hospitalization Category Date Time Status CTA head neck [CT angio headneck* [id number]] Stat Cat Scan 10/06/22 20:02 Completed XR chest 1V portable [id number] Stat Exams 10/06/22 20:06 Completed Pending at discharge Category Date Time Status CBC Auto Diff [Complete Blood Count w/Auto] AM LABS Lab 10/08/22 04:00 Ordered CBC Auto Diff [Complete Blood Count w/Auto] AM LABS Lab 10/09/22 04:00 Ordered CBC Auto Diff [Complete Blood Count w/Auto] AM LABS Lab 10/10/22 04:00 Ordered CMP [Comprehensive Metabolic Panel] AM LABS Lab 10/08/22 04:00 Ordered CMP [Comprehensive Metabolic Panel] AM LABS Lab 10/09/22 04:00 Ordered CMP [Comprehensive Metabolic Panel] AM LABS Lab 10/10/22 04:00 Ordered Urine Culture Stat Lab 10/06/22 21:12 Received Radiology Impressions Head/Neck CTA 10/06/22 20:02 IMPRESSION: 1. Redemonstrated chronic proximal left MCA occlusion with very minimal enhancement of left MCA branches. 2. Right posterior cerebral artery P2 segment severe focal stenosis. 3. Diffuse atrophy, old left hemispheric infarcts and chronic/remote ischemic changes without evidence of superimposed acute infarct, hemorrhage or mass-effect at this time. ASSESSMENT: ASPECTS ([place] Stroke Program Early CT Score) is 10. IMPRESSION: No evidence of significant carotid or vertebral arterial vascular disease at this time. REFERENCES: NASCET CRITERIA. The degree of stenosis in the cervical segment of the internal carotid artery is based on NASCET criteria. Normal is no stenosis. Mild is less than 50% stenosis. Moderate is 50-69% stenosis. Severe is 70% to 99% stenosis. Total occlusion is no detectable patent lumen. Chest X-Ray 10/06/22 20:06 IMPRESSION: 1. Cardiomegaly. 2. Low lung volumes with minimal left basilar atelectasis. Laboratory Results WBC 7.6 10^3/uL (4.0-10.0) 10/06/22 20:10 RBC 4.32 10^6/uL (4.1-5.3) 10/06/22 20:10 Hgb 13.8 g/dL (11.5-15.3) 10/06/22 20:10 Hct 43.2 % (37.0-47.0) 10/06/22 20:10 MCV 100.0 fl (81-99) H 10/06/22 20:10 MCH 31.9 pg (28.0-34.0) 10/06/22 20:10 MCHC 31.9 g/dL (30.0-36.0) 10/06/22 20:10 RDW 14.7 % (12.1-15.1) 10/06/22 20:10 Plt Count 213 10^3/cmm (130-400) 10/06/22 20:10 MPV 9.2 fL (7.4-10.4) 10/06/22 20:10 Neut % (Auto) 43.3 % 10/06/22 20:10 Lymph % (Auto) 40.8 % 10/06/22 20:10 [place] % (Auto) 10.9 % 10/06/22 20:10 Eos % (Auto) 4.3 % 10/06/22 20:10 Baso % (Auto) 0.4 % 10/06/22 20:10 Neut # (Auto) 3.29 10^3/uL (1.8-7.7) 10/06/22 20:10 Lymph # (Auto) 3.1 10^3/uL (0.8-4.8) 10/06/22 20:10 [place] # (Auto) 0.8 10^3/uL (0.2-0.9) 10/06/22 20:10 Eos # (Auto) 0.3 10^3/uL (0.0-0.8) 10/06/22 20:10 Baso # (Auto) 0.0 10^3/uL (0.0-0.1) 10/06/22 20:10 Nucleated RBC % (auto) 0 % 10/06/22 20:10 Nucleated RBCs # 0.0 /100WBC 10/06/22 20:10 PT 14.80 SECONDS (12.1-14.9) 10/06/22 20:10 INR 1.13 (0.8-1.2) 10/06/22 20:10 APTT 28.6 SECONDS (23.9-36.7) 10/06/22 20:10 Sodium 141 mmol/L (136-145) 10/07/22 01:41 Potassium 3.6 mmol/L (3.5-5.1) 10/07/22 01:41 Chloride 108 mmol/L (98-107) H 10/07/22 01:41 Carbon Dioxide 23 mmol/L (22-29) 10/07/22 01:41 Anion Gap 13.6 (5-19) 10/07/22 01:41 BUN 7 mg/dL (8-23) L 10/07/22 01:41 Creatinine 0.4 mg/dL (0.5-0.9) L 10/07/22 01:41 GFR Calculation Not Reportable 10/07/22 01:41 Glucose 105 mg/dL (65-115) 10/07/22 01:41 Calculated Osmolality 290 mOsm/kg (285-295) 10/07/22 01:41 Calcium 8.8 mg/dL (8.5-10.5) 10/07/22 01:41 Magnesium 1.8 mg/dL (1.7-2.3) 10/07/22 01:41 Total Bilirubin 0.5 mg/dL (0.15-1.2) 10/06/22 20:10 AST 13 U/L (0-32) 10/06/22 20:10 ALT 6 U/L (0-33) 10/06/22 20:10 Alkaline Phosphatase 99 U/L (35-105) 10/06/22 20:10 Total Protein 7.3 g/dL (6.6-8.7) 10/06/22 20:10 Albumin 3.8 g/dL (3.5-5.2) 10/06/22 20:10 Globulin 3.5 g/dL (1.3-4.6) 10/06/22 20:10 Vitamin B12 592 pg/mL (232-1245) 10/06/22 20:10 Urine Color Yellow (Yellow) 10/06/22 21:12 Urine Appearance Sl hazy (CLEAR) A 10/06/22 21:12 Urine pH 7 (5-7) 10/06/22 21:12 Ur Specific [place] 1.010 (1.005-1.030) 10/06/22 21:12 Urine Protein Neg (Negative) 10/06/22 21:12 Urine Glucose (UA) Norm (Normal) 10/06/22 21:12 Urine Ketones Negative (Negative) 10/06/22 21:12 Urine Blood 2+ (Negative) H 10/06/22 21:12 Urine Nitrate Positive (Negative) H 10/06/22 21:12 Urine Bilirubin Neg (Negative) 10/06/22 21:12 Urine Urobilinogen Norm mg/dL (Negative) 10/06/22 21:12 Ur Leukocyte Esterase 2+ (Negative) H 10/06/22 21:12 Urine RBC 10-15 /hpf (0-2) H 10/06/22 21:12 Urine WBC 80-100 /hpf (0-5) H 10/06/22 21:12 Ur Squamous Epith Cells 0-4 /hpf (0-5) H 10/06/22 21:12 Amorphous Sediment Not Reportable 10/06/22 21:12 Urine Bacteria 3+ /hpf (NONE) H 10/06/22 21:12 Urine Opiates Screen Positive ng/mL (Negative) H 10/06/22 21:12 Ur Barbiturates Screen Negative ng/mL (Negative) 10/06/22 21:12 Ur Phencyclidine Scrn Negative ng/mL (Negative) 10/06/22 21:12 Ur Amphetamines Screen Negative ng/mL (Negative) 10/06/22 21:12 U Benzodiazepines Scrn Negative ng/mL (Negative) 10/06/22 21:12 Urine Cocaine Screen Negative ng/mL (Negative) 10/06/22 21:12 U Marijuana (THC) Screen Negative ng/mL (Negative) 10/06/22 21:12 Influenza Type A Ag negative (Negative) 10/06/22 20:35 Influenza Type B Ag negative (Negative) 10/06/22 20:35 SARS-CoV-2 Ag (Rapid) negative (Negative) 10/06/22 20:35 Vitals Last Vital Signs Temp 98.5 F 10/07/22 07:38 Pulse 87 10/07/22 08:55 Resp 18 10/07/22 08:55 BP 130/67 10/07/22 07:38 Pulse Ox 94 10/07/22 08:55 O2 Del Method 10/07/22 08:55 Discharge Plan Discharge Patient Disposition: Home Condition: Stable Prescriptions: New levofloxacin 750 mg tablet 750 mg PO DAILY 5 Days Qty: 5 0RF Continued atorvastatin 40 mg tablet 40 mg PO QPM buspirone 5 mg tablet 5 mg PO Q8H PRN (Reason: Anxiety) anastrozole 1 mg tablet 1 mg PO DAILY ondansetron HCl 4 mg tablet 4 mg PO Q4H aspirin 81 mg Tablet,Delayed Release (Dr/Ec) 81 mg PO DAILY baclofen 10 mg tablet 10 mg PO BID CoQ-10 100 mg Capsule 100 mg PO DAILY Discharge Orders: Discharge Order (Routine); Ordered 10/07/22 Ordered By: Wei Trujillo Referrals: Preeti Cooper MD [Physician] - (office will call with appointment) Guerrero Carrillo MD [Primary Care Provider] - 10/13/22 1:15 pm Patient Instructions: Levofloxacin (By mouth), Urinary Tract Infection in Women (GEN), Opioid Safety, Pain Management Discharge Attestations Time Spent in Discharge Care*: less than 30 min Quality Metrics Clinical Quality Measures [ No reported AMI, CVA or VTE this stay] Coding Level of Care Code Acute Chg FW DC note Diagnoses Acute UTI N39.0 Hypokalemia E87.6
[2022-10-07] MEDS: pneumococcal (23 valent) SDV 0.5 mL IM (10:05)
[2022-10-07] MEDS: anastrozole 1 mg Tablet PO (11:05)
[2022-10-07 11:32] VITALS: PULSE 87; RESP 18; O2SAT 94
--- NOTE | 2022-10-07 13:03 | PC.SOCIAL ---
During rounds it was discussed for CM to see patient, Patient had already been discharged and left before CM got to see her.
== END 2022-10-07 11:30 | disposition home or self-care (01) ==
LOC: ER 22:16 → MEDSURG 22:29
PROVIDERS: Admitting Provider Internal Medicine; Emergency Provider Emergency Medicine; PCP Family Medicine; Visit Provider Internal Medicine
DX: N39.0 Urinary tract infection, site not specified (principal); E87.6 Hypokalemia; Z86.73 Personal history of transient ischemic attack (TIA), and cerebral infarction without residual deficits; I51.7 Cardiomegaly; J98.11 Atelectasis
CPT/HCPCS: 36415; 51701; 70496; 70498; 71045; 80048; 80053; 80306; 81001; 82607; 83735; 85025; 85610; 85730; 87077; 87086; 87186; 87426; 87804; 90471; 90686; 90732; 92523; 92610; 93005; 96365; 96366; 96367; 96372; 97161; 97530; 99285; G0378; J0696; J1650; J3480; J7030; J8999; Q9967

== ENCOUNTER 2022-10-13 20:42 | Emergency (ER) | payer MEDICARE, OTHER, SELFPAY ==
[2022-10-13] VITALS (9 sets, daily range): BP systolic 133–188; BP diastolic 66–107; PULSE 87–104; RESP 12–22; TEMP 36.6; O2SAT 96–99
--- NOTE | 2022-10-13 20:46 | ED_ITS ---
HPI - Neuro Symptoms/Deficit General: Chief Complaint: Neuro Symptoms/Deficit Stated Complaint: stroke Time Seen by Provider: 10/13/22 20:45 Limitations: altered mental status History of Present Illness: 77-year-old lady presenting by EMS for strokelike symptoms. Last known normal around 1745. Apparently since that time she has been babbling. Patient provides no meaningful history. Review of Systems General: Reports: ROS unobtainable due to mental status PFS ED PFSH: Medical History Acute UTI Chronic cystitis Hypokalemia Pelvic floor relaxation Stroke-like symptom Surgical History Hx of cataract surgery Family History Father CAD (coronary artery disease) MOTHER UNKNOWN CAUSE Social History Smoking and tobacco status: never smoked Alcohol intake: never Adopted: No Caregiver/support person: No Lives independently: No Household members: spouse Marital status: Current occupational status: retired History of recent travel: No Physical Exam Const: GENERAL APPEARANCE: well developed and ill appearing; not cooperative HENMT: COMMON NORMALS: normocephalic and atraumatic HEAD & SCALP: normocephalic and atraumatic THROAT: posterior oropharynx normal Eye: COMMON NORMALS: conjunctivae normal CONJUNCTIVA: Yes conjunctivae normal SCLERA: sclerae normal Neck/C-Spine: COMMON NORMALS: supple GENERAL: Yes trachea midline Resp: COMMON NORMALS: clear to auscultation bilaterally AUSCULTATION: clear to auscultation bilaterally Cardio: COMMON NORMALS: regular rate and regular rhythm RATE: regular rate RHYTHM: regular rhythm GI: COMMON NORMALS: Soft to palpation PALPATION: Yes Soft to palpation and No Tenderness to palpation present (GI) Extremity: GENERAL: Yes normal exam except as noted and No edema Neuro: SENSORIUM/ORIENTATION: Yes Orientation impaired and Yes fluctuating sensorium OTHER: Significantly abnormal neurologic exam with limited ability to test. She has flaccid right-sided weakness and some end receptive aphasia. NIHSS 14 Psych: ATTENTION/CONCENTRATION: Yes attention grossly impaired and Yes concentration grossly impaired MEMORY/COGNITION: Yes memory grossly impaired and Yes cognition grossly impaired Course Vital Signs: Vital signs: Vital Signs Temperature 97.8 F 10/13/22 20:55 Pulse Rate 91 10/14/22 02:25 Respiratory Rate 20 H 10/14/22 02:25 Blood Pressure 140/69 10/14/22 02:25 Pulse Oximetry 98 10/14/22 02:25 Oxygen Delivery Me thod 10/13/22 20:55 MDM - Neuro Symptoms/Deficit Medical Decision Making 77-year-old lady presenting with strokelike symptoms. NIHSS 14. Initially information from EMS was symptoms were mostly acute in onset with history of stroke. CT head demonstrates no acute change compared to prior. No evidence of hemorrhage or mass. Upon clarification of clinical history from the patient's many of the symptoms are chronic in nature and there is likely not significant change from before the patient lay down until present. Therefore patient is not a tPA candidate. EKG notable for sinus rhythm, nonspecific ST segment abnormalities, left axis deviation, normal intervals, no STEMI. Labs with unremarkable hematologic panel, metabolic panel with persistent hypokalemia, urinalysis demonstrates resolution of urinary tract infection. Chest x-ray with no lobar consolidation or pneumothorax. Patient treated with potassium supplementation, she also required anxiolysis with Haldol I had extensive discussion with the patient's regarding clinical state. I believe that the patient is similar to baseline in reality. She likely needs jail placement however the patient's does not desire this at this time. Most likely etiology of symptoms is prior stroke. The results of ED evaluation were discussed with the patient's including prescriptions and/or symptomatic cares (if applicable) including appropriate and responsible use, followup plan, and return precautions. The patient's verbalized understanding and felt safe for discharge. Medical Records I reviewed the patient's medical records. Lab Data I reviewed the patient's lab results. 10/13/22 21:14 10/13/22 21:14 Radiology Impressions Chest X-Ray 10/13/22 20:46 IMPRESSION: No acute findings. Head CT 10/13/22 20:46 IMPRESSION: Stable exam, no acute intracranial abnormality. ASSESSMENT: ASPECTS ([place] Stroke Program Early CT Score) is 10. Laboratory Results WBC 8.4 10^3/uL (4.0-10.0) 10/13/22 21:14 RBC 4.41 10^6/uL (4.1-5.3) 10/13/22 21:14 Hgb 13.8 g/dL (11.5-15.3) 10/13/22 21:14 Hct 43.3 % (37.0-47.0) 10/13/22 21:14 MCV 98.2 fl (81-99) 10/13/22 21:14 MCH 31.3 pg (28.0-34.0) 10/13/22 21:14 MCHC 31.9 g/dL (30.0-36.0) 10/13/22 21:14 RDW 14.8 % (12.1-15.1) 10/13/22 21:14 Plt Count 212 10^3/cmm (130-400) 10/13/22 21:14 MPV 9.2 fL (7.4-10.4) 10/13/22 21:14 Neut % (Auto) 41.7 % 10/13/22 21:14 Lymph % (Auto) 40.4 % 10/13/22 21:14 Bond % (Auto) 11.6 % 10/13/22 21:14 Eos % (Auto) 5.6 % 10/13/22 21:14 Baso % (Auto) 0.6 % 10/13/22 21:14 Neut # (Auto) 3.50 10^3/uL (1.8-7.7) 10/13/22 21:14 Lymph # (Auto) 3.4 10^3/uL (0.8-4.8) 10/13/22 21:14 Bond # (Auto) 1.0 10^3/uL (0.2-0.9) H 10/13/22 21:14 Eos # (Auto) 0.5 10^3/uL (0.0-0.8) 10/13/22 21:14 Baso # (Auto) 0.1 10^3/uL (0.0-0.1) 10/13/22 21:14 Nucleated RBC % (auto) 0 % 10/13/22 21:14 Nucleated RBCs # 0.0 /100WBC 10/13/22 21:14 PT 14.70 SECONDS (12.1-14.9) 10/13/22 21:14 INR 1.11 (0.8-1.2) 10/13/22 21:14 APTT 26.9 SECONDS (23.9-36.7) 10/13/22 21:14 Sodium 141 mmol/L (136-145) 10/13/22 21:14 Potassium 3.0 mmol/L (3.5-5.1) L 10/13/22 21:14 Chloride 103 mmol/L (98-107) 10/13/22 21:14 Carbon Dioxide 26 mmol/L (22-29) 10/13/22 21:14 Anion Gap 15.0 (5-19) 10/13/22 21:14 BUN 8 mg/dL (8-23) 10/13/22 21:14 Creatinine 0.5 mg/dL (0.5-0.9) 10/13/22 21:14 GFR Calculation Not Reportable 10/13/22 21:14 Glucose 120 mg/dL (65-115) H 10/13/22 21:14 Calculated Osmolality 292 mOsm/kg (285-295) 10/13/22 21:14 Calcium 9.7 mg/dL (8.5-10.5) 10/13/22 21:14 Total Bilirubin 0.5 mg/dL (0.15-1.2) 10/13/22 21:14 AST 23 U/L (0-32) 10/13/22 21:14 ALT 16 U/L (0-33) 10/13/22 21:14 Alkaline Phosphatase 99 U/L (35-105) 10/13/22 21:14 Total Protein 6.9 g/dL (6.6-8.7) 10/13/22 21:14 Albumin 3.7 g/dL (3.5-5.2) 10/13/22 21:14 Globulin 3.2 g/dL (1.3-4.6) 10/13/22 21:14 Urine Color Yellow (Yellow) 10/13/22 21:17 Urine Appearance Clear (CLEAR) 10/13/22 21:17 Urine pH 6.5 (5-7) 10/13/22 21:17 Ur Specific [place] 1.020 (1.005-1.030) 10/13/22 21:17 Urine Protein Neg (Negative) 10/13/22 21:17 Urine Glucose (UA) Norm (Normal) 10/13/22 21:17 Urine Ketones Negative (Negative) 10/13/22 21:17 Urine Blood Neg (Negative) 10/13/22 21:17 Urine Nitrate Negative (Negative) 10/13/22 21:17 Urine Bilirubin Neg (Negative) 10/13/22 21:17 Urine Urobilinogen Norm mg/dL (Negative) 10/13/22 21:17 Ur Leukocyte Esterase Negative (Negative) 10/13/22 21:17 Urine Opiates Screen Negative ng/mL (Negative) 10/13/22 21:17 Ur Barbiturates Screen Negative ng/mL (Negative) 10/13/22 21:17 Ur Phencyclidine Scrn Negative ng/mL (Negative) 10/13/22 21:17 Ur Amphetamines Screen Negative ng/mL (Negative) 10/13/22 21:17 U Benzodiazepines Scrn Negative ng/mL (Negative) 10/13/22 21:17 Urine Cocaine Screen Negative ng/mL (Negative) 10/13/22 21:17 U Marijuana (THC) Screen Negative ng/mL (Negative) 10/13/22 21:17 Critical Care Time Critical Care Time: Critical Care Time: Yes Total Critical Care Time: 45 Attestation: Due to a high probability of clinically significant, possibly life threatening deterioration, the patient required my highest level of attention and preparedness to intervene emergently and I personally spent this critical care time directly and personally managing the patient. This critical care time included obtaining a history; examining the patient; pulse oximetry; ordering and review of laboratory and imaging studies; arranging urgent treatment with development of a management plan; evaluation of patient's response to treatment; frequent reassessment; and, discussions with other providers as applicable. It was exclusive of separately billable procedures. Primary system involved is neurologic Discharge Plan Discharge Patient Disposition: Home Clinical Impression: Hypokalemia, AMS (altered mental status) Condition: Stable Prescriptions: No Action atorvastatin 40 mg tablet 40 mg PO QPM buspirone 5 mg tablet 5 mg PO Q8H PRN (Reason: Anxiety) anastrozole 1 mg tablet 1 mg PO DAILY ondansetron HCl 4 mg tablet 4 mg PO Q4H aspirin 81 mg Tablet,Delayed Release (Dr/Ec) 81 mg PO DAILY baclofen 10 mg tablet 10 mg PO BID CoQ-10 100 mg Capsule 100 mg PO DAILY Discharge Orders: Discharge ED (Routine); Ordered 10/13/22 Ordered By: Sung Garduno Referrals: Guerrero Carrillo MD [Primary Care Provider] - Discharge Diet: Usual diet Discharge Activity: Resume usual activity Patient Instructions: Hypokalemia (ED), Altered Mental Status (ED) Activity Restrictions/Additional Instructions: Thank you for visiting the emergency department. You were seen and evaluated for altered mental status. The most likely cause of your mental status changes related to prior stroke. Your potassium continues to be low. Please ensure that you take your potassium supplementation and other medications as prescribed. Return to the emergency department for anything that you are concerned about and feel needs emergency department evaluation. Coding Level of Care Code ED Nanotechnology Engineering Technologist for Daniel Saldana
--- NOTE | 2022-10-13 20:46 | XRR_ITS ---
PROCEDURE INFORMATION: Exam: XR Chest Exam date and time: 10/13/2022 9:13 PM Age: 77 years old Clinical indication: Other: Stroke alert TECHNIQUE: Imaging protocol: Radiologic exam of the chest. Views: 1 view. COMPARISON: CR (CHEST, ) 10/06/2022 8:26 PM FINDINGS: Lungs: No consolidation. Pleural spaces: No pleural effusion. No pneumothorax. Heart/Mediastinum: Stable heart size. Bones/joints: Visualized osseous structures are intact. XR/XR chest 1V portable [id number] IMPRESSION: No acute findings.
--- NOTE | 2022-10-13 20:46 | CTR_ITS ---
PROCEDURE INFORMATION: Exam: CT Head Without Contrast Exam date and time: 10/13/2022 8:48 PM Age: 77 years old Clinical indication: Stroke-like symptoms; Altered mental status/memory loss and speech disturbance TECHNIQUE: Imaging protocol: Computed tomography of the head without contrast. Radiation optimization: All CT scans at this facility use at least one of these dose optimization techniques: automated exposure control; mA and/or kV adjustment per patient size (includes targeted exams where dose is matched to clinical indication); or iterative reconstruction. Other protocol: This patient has received 2 known CTs and 0 known cardiac nuclear medicine studies in the 12 months prior to the current study. Other technique: STROKE PROTOCOL was implemented. COMPARISON: CT angio headneck* [id number] 10/06/2022 8:20 PM RADIATION DOSE METRICS: Total DLP (mGy-cm): 745.98 FINDINGS: Brain: No hemorrhage. No edema. Redemonstrated areas of patulous encephalomalacia including the genu of the corpus callosum, left basal ganglia, left frontal, parietal, and temporal lobes. There is also a punctate old lacunar infarct in the left johny. These findings are not significantly changed from prior study. No mass effect. Cerebral ventricles: No ventriculomegaly. Paranasal sinuses: Visualized sinuses are unremarkable. No fluid levels. Mastoid air cells: Visualized mastoid air cells are well aerated. Bones/joints: Unremarkable. No acute fracture. Soft tissues: Unremarkable. CT/CT head wo con* [id number] IMPRESSION: Stable exam, no acute intracranial abnormality. ASSESSMENT: ASPECTS ([place] Stroke Program Early CT Score) is 10.
--- NOTE | 2022-10-13 20:57 | ECG_ITS ---
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 Measurements Intervals [place] Rate: 89 P: 54 MT: 192 QRS: -29 QRSD: 78 T: 42 QT: 362 QTc: 441 Interpretive Statements SINUS RHYTHM POSSIBLE ANTERIOR MYOCARDIAL INFARCTION , PROBABLY OLD [30 ms Q WAVE IN V3/V4, OR R < 0.2 mV IN V4] Compared to ECG 10/06/2022 20:11:15 No significant changes Electronically Signed On 10-13-2022 22:46:08 DROP WIRE HANGER by Michael Burroughs M.D. [id number]
[2022-10-13 21:20] LABS: Basophils # 0.1 10^3/uL (0.0-0.1); Basophils % 0.6 %; Eosinophils # 0.5 10^3/uL (0.0-0.8); Eosinophils % 5.6 %; Hematocrit 43.3 % (37.0-47.0); Hemoglobin 13.8 g/dL (11.5-15.3); Lymphocytes # 3.4 10^3/uL (0.8-4.8); Lymphocytes % 40.4 %; Mean Corpuscular HGB Conc 31.9 g/dL (30.0-36.0); Mean Corpuscular Hemoglobin 31.3 pg (28.0-34.0); Mean Corpuscular Volume 98.2 fl (81-99); Mean Platelet Volume 9.2 fL (7.4-10.4); Monocytes % 11.6 %; Neutrophils % 41.7 %; Nucleated Red Blood Cells % 0 %; Platelet Count 212 10^3/cmm (130-400); Red Blood Count 4.41 10^6/uL (4.1-5.3); Red Cell Distribution Width 14.8 % (12.1-15.1); White Blood Count 8.4 10^3/uL (4.0-10.0)
[2022-10-13 21:37] LABS: INR 1.11 (0.8-1.2)
[2022-10-13 21:38] LABS: Partial Thromboplastin Time 26.9 SECONDS (23.9-36.7)
[2022-10-13 21:39] LABS: Add Urine Microscopic? NO; Charge for UA Resulting for Rev
[2022-10-13 21:44] LABS: Bilirubin Urine Neg (Negative); Blood Urine Neg (Negative); Glucose Urine UA Norm (Normal); Ketones Urine Negative (Negative); Leukocyte Esterase Urine Negative (Negative); Nitrate Urine Negative (Negative); Protein Urine Neg (Negative); Urine Appearance Clear (CLEAR); Urine Color Yellow (Yellow); Urobilinogen Urine Norm (Negative); pH Urine 6.5 (5-7)
[2022-10-13 21:44] LABS: Alanine Aminotransferase 16 U/L (0-33); Albumin Level 3.7 g/dL (3.5-5.2); Alkaline Phosphatase 99 U/L (35-105); Aspartate Amino Transferase 23 U/L (0-32); Blood Urea Nitrogen 8 mg/dL (8-23); Calcium 9.7 mg/dL (8.5-10.5); Carbon Dioxide 26 mmol/L (22-29); Chloride 103 mmol/L (98-107); Globulin 3.2 g/dL (1.3-4.6); Glucose 120 mg/dL (65-115); Osmolality Calculated 292 mOsm/kg (285-295); Sodium 141 mmol/L (136-145); Total Bilirubin 0.5 mg/dL (0.15-1.2); Total Protein 6.9 g/dL (6.6-8.7)
[2022-10-13 21:51] LABS: Amphetamines Screen Urine Negative (Negative); Barbiturates Screen Urine Negative (Negative); Benzodiazepines Screen Urine Negative (Negative); Cocaine Screen Urine Negative (Negative); Opiate Screen Urine Negative (Negative); PCP Screen Urine Negative (Negative); THC Screen Urine Negative (Negative)
[2022-10-13] MEDS: sodium chloride 0.9% 500 ML 125 ML IV (22:43)
[2022-10-13] MEDS: lidocaine 1% 5 ML in potassium chloride premix 100 ML 26.25 ML IV (22:43)
[2022-10-13] MEDS: haloperidol inj 5 mg/mL INJ 1 mL 1 MG IVP (22:43)
[2022-10-14] VITALS: BP 129/74; PULSE 92; RESP 17; O2SAT 99
[2022-10-14 00:30] VITALS: BP 129/63; PULSE 92; RESP 15; O2SAT 98
[2022-10-14 01:00] VITALS: BP 155/80; PULSE 96; RESP 20; O2SAT 99
[2022-10-14] MEDS: potassium chloride ER 20 mEq Tablet 40 MEQ PO (01:50)
[2022-10-14 02:25] VITALS: BP 140/69; PULSE 91; RESP 20; O2SAT 98
--- NOTE | 2022-10-14 11:14 | DCPLANNER ---
Addendum entered by Devi Kevin 12/09/22 15:38: Patient had a follow up appointment scheduled with neurology - patient did attend appointment Addendum entered by Devi Kevin 12/04/22 08:08: Patient has a follow up appointment scheduled for Wednesday, December 09, 2022 at 1:[address] Limon at neurology. Original Note: manager transfusion had message to schedule a follow up appointment for patient with neurology. manager transfusion sent patients information to the front office staff at neurology. Patients information will be printed and reviewed. Clinic will call patient with appointment information.
== END 2022-10-14 02:26 | disposition home or self-care (01) ==
PROVIDERS: Emergency Provider Emergency Medicine; PCP Family Medicine
DX: R41.82 Altered mental status, unspecified (principal); E87.6 Hypokalemia; Z79.82 Long term (current) use of aspirin
CPT/HCPCS: 70450; 71045; 80053; 80306; 81003; 85025; 85610; 85730; 93005; 96365; 96366; 96375; 99285; J1630; J3480; J7040

== ENCOUNTER → 2022-12-09 13:08 | Outpatient (BNVA) | payer MEDICARE, OTHER, SELFPAY | PROVIDERS: PCP Family Medicine; Referring Provider Emergency Medicine; Visit Provider Psychiatry & Neurology Neurology | DX: G45.9 Transient cerebral ischemic attack, unspecified (principal); I69.351 Hemiplegia and hemiparesis following cerebral infarction affecting right dominant side; I69.322 Dysarthria following cerebral infarction; I69.320 Aphasia following cerebral infarction | CPT/HCPCS: 36415; 84132; 99203 ==

== ENCOUNTER 2022-12-16 10:21 | Oncology outpatient (recurring) (ONCR) | payer MEDICARE, OTHER, SELFPAY ==
--- NOTE | 2022-12-16 10:53 | N.ONRAD NP_ITS ---
Radiation Oncology Consultation Patient Name: Angela Colvin Date of : 1945 Date of Service: 12/16/2022 Attending Physician: Antoine Ervin M.D. Angela Colvin was seen in consultation at the request of Rasta Argueta M.D. this afternoon for evaluation regarding potential adjuvant breast radiotherapy for the management of breast cancer. She was evaluated for a palpable right breast mass. A diagnostic mammography (independently reviewed in [facility]) ordered on April 23, 2022 identified an a lobulated mass in the right breast 1.8 cm. Ultrasonography demonstrated at the 11 o'clock position that was 2 cm from the nipple a hypoechoic mass measuring 1.2 cm x 1.5 cm x 1.9 cm. An ultrasound-guided breast biopsy obtained on May 06, 2022 identified a mucinous carcinoma. A right wire-guided lumpectomy and sentinel lymph node biopsy was performed by Rasta Aguiar M.D. on June 03, 2022. 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 The medial surgical margin was focally positive. A total of 3 benign lymph nodes were harvested. Immunohistochemical staining was positive for estrogen receptor (95%) and progesterone receptor (15%) while negative for HER-2 (IHC 1+). The Ki-67 was <10%. A re-excision completed on June 15, 2022. The re-assessed surgical margin was negative. She was scheduled to discuss adjuvant radiotherapy. I reviewed the [place] Joint Commission on Cancer Staging for breast cancer and specifically the patient's pathological stage IA (T1cN0) corresponding to her disease and The National Comprehensive Cancer Network Guidelines for the omission of breast irradiation in patients 70 years of age or older with estrogen receptor positive, clinically node-negative, T1-2 tumors who will receive adjuvant endocrine therapy. I summarized the randomized trial (CALGB 9343) that established this standard published in The [place] Journal of Medicine, The study demonstrated the addition of radiotherapy to endocrine therapy improved local control compared to endocrine therapy alone without an overall survival advantage. I also reviewed the classic study by NSABP comparing mastectomy, lumpectomy, and lumpectomy with radiotherapy and the Early Breast Cancer Trialist Collaborative Group meta-analysis. She is aware that the addition of radiotherapy to lumpectomy provides improvement in local control and overall survival. If the patient elects to have treatment, I anticipate a 3 week course of hypofractionated radiotherapy. The patient would like to evaluate her treatment options prior to making a final decision. Signed by: Antoine Ervin 12/16/2022 10:52:08 AM
== END 2023-01-03 23:59 | disposition home or self-care (01) ==
LOC: ONCMED 10:22
PROVIDERS: PCP Family Medicine; Visit Provider Radiology Radiation Oncology
DX: C50.811 Malignant neoplasm of overlapping sites of right female breast (principal); Z17.0 Estrogen receptor positive status [ER+]; R59.0 Localized enlarged lymph nodes
CPT/HCPCS: 99205

== ENCOUNTER 2023-02-04 13:52 | Outpatient (RCR) | payer MEDICARE, OTHER, SELFPAY | END 2023-03-05 23:59 | disposition home or self-care (01) | LOC: SST 13:52 | PROVIDERS: PCP Family Medicine; Visit Provider Nurse Practitioner Family | DX: I63.9 Cerebral infarction, unspecified (principal); I69.320 Aphasia following cerebral infarction; R47.01 Aphasia | CPT/HCPCS: 92507; 92523 ==

== ENCOUNTER 2023-02-04 13:53 | Outpatient (RCR) | payer MEDICARE, OTHER, SELFPAY | END 2023-03-05 23:59 | disposition home or self-care (01) | LOC: SOT 13:53 | PROVIDERS: Visit Provider Nurse Practitioner Family | DX: I69.951 Hemiplegia and hemiparesis following unspecified cerebrovascular disease affecting right dominant side (principal); M62.838 Other muscle spasm | CPT/HCPCS: 97110; 97112; 97165; 97530 ==

== ENCOUNTER 2023-02-04 13:57 | Outpatient (RCR) | payer MEDICARE, OTHER, SELFPAY | END 2023-03-05 23:59 | disposition home or self-care (01) | LOC: SPT 13:57 | PROVIDERS: PCP Family Medicine; Visit Provider Nurse Practitioner Family | DX: I69.320 Aphasia following cerebral infarction (principal) | CPT/HCPCS: 97110; 97116; 97161; 97530 ==

== ENCOUNTER 2023-03-06 06:00 | Outpatient (RCR) | payer MEDICARE, OTHER, SELFPAY | END 2023-04-05 23:59 | disposition home or self-care (01) | LOC: SST 06:00 | PROVIDERS: PCP Family Medicine; Visit Provider Nurse Practitioner Family | DX: I63.9 Cerebral infarction, unspecified (principal); I69.320 Aphasia following cerebral infarction | CPT/HCPCS: 92507 ==

== ENCOUNTER 2023-03-06 06:00 | Outpatient (RCR) | payer MEDICARE, OTHER, SELFPAY | END 2023-04-05 23:59 | disposition home or self-care (01) | LOC: SOT 06:00 | PROVIDERS: PCP Family Medicine; Visit Provider Nurse Practitioner Family | DX: I69.351 Hemiplegia and hemiparesis following cerebral infarction affecting right dominant side (principal); M62.838 Other muscle spasm | CPT/HCPCS: 97110; 97112; 97140; 97530 ==

== ENCOUNTER 2023-03-19 10:21 | Outpatient (RCR) | payer MEDICARE, OTHER, SELFPAY | END 2023-04-05 23:59 | disposition home or self-care (01) | LOC: SPT 10:21 | PROVIDERS: PCP Family Medicine; Visit Provider Nurse Practitioner Family | DX: I69.351 Hemiplegia and hemiparesis following cerebral infarction affecting right dominant side (principal); I63.412 Cerebral infarction due to embolism of left middle cerebral artery | CPT/HCPCS: 97110; 97116; 97530 ==

== ENCOUNTER 2023-04-06 06:00 | Outpatient (RCR) | payer MEDICARE, OTHER, SELFPAY | END 2023-05-06 23:59 | disposition home or self-care (01) | LOC: SST 06:00 | PROVIDERS: PCP Family Medicine; Visit Provider Nurse Practitioner Family | DX: I63.9 Cerebral infarction, unspecified (principal); I69.320 Aphasia following cerebral infarction | CPT/HCPCS: 92507 ==

== ENCOUNTER 2023-04-06 06:00 | Outpatient (RCR) | payer MEDICARE, OTHER, SELFPAY | END 2023-05-06 23:59 | disposition home or self-care (01) | LOC: SPT 06:00 | PROVIDERS: PCP Family Medicine; Visit Provider Nurse Practitioner Family | DX: I69.351 Hemiplegia and hemiparesis following cerebral infarction affecting right dominant side (principal); I63.412 Cerebral infarction due to embolism of left middle cerebral artery; M62.838 Other muscle spasm | CPT/HCPCS: 97110; 97116; 97530 ==

== ENCOUNTER 2023-04-06 06:00 | Outpatient (RCR) | payer MEDICARE, OTHER, SELFPAY | END 2023-05-06 23:59 | disposition home or self-care (01) | LOC: SOT 06:00 | PROVIDERS: PCP Family Medicine; Visit Provider Nurse Practitioner Family | DX: G81.11 Spastic hemiplegia affecting right dominant side (principal) | CPT/HCPCS: 97110; 97112; 97530 ==

== ENCOUNTER 2023-05-07 06:00 | Outpatient (RCR) | payer MEDICARE, OTHER, SELFPAY | END 2023-06-05 23:59 | disposition home or self-care (01) | LOC: SOT 06:00 | PROVIDERS: PCP Family Medicine; Visit Provider Nurse Practitioner Family | DX: I69.351 Hemiplegia and hemiparesis following cerebral infarction affecting right dominant side (principal) | CPT/HCPCS: 97110; 97112; 97530 ==

== ENCOUNTER 2023-05-07 06:00 | Outpatient (RCR) | payer MEDICARE, OTHER, SELFPAY | END 2023-06-05 23:59 | disposition home or self-care (01) | LOC: SST 06:00 | PROVIDERS: PCP Family Medicine; Visit Provider Nurse Practitioner Family | DX: I69.320 Aphasia following cerebral infarction (principal) | CPT/HCPCS: 92507 ==

== ENCOUNTER 2023-05-07 06:00 | Outpatient (RCR) | payer MEDICARE, OTHER, SELFPAY | END 2023-06-05 23:59 | disposition home or self-care (01) | LOC: SPT 06:00 | PROVIDERS: PCP Family Medicine; Visit Provider Nurse Practitioner Family | DX: I69.351 Hemiplegia and hemiparesis following cerebral infarction affecting right dominant side (principal); I63.412 Cerebral infarction due to embolism of left middle cerebral artery; M62.838 Other muscle spasm | CPT/HCPCS: 97110; 97116; 97530 ==

== ENCOUNTER 2023-06-06 06:00 | Outpatient (RCR) | payer MEDICARE, OTHER, SELFPAY | END 2023-07-06 23:59 | disposition home or self-care (01) | LOC: SOT 06:00 | PROVIDERS: PCP Family Medicine; Visit Provider Nurse Practitioner Family | DX: I69.951 Hemiplegia and hemiparesis following unspecified cerebrovascular disease affecting right dominant side (principal) | CPT/HCPCS: 97110; 97112 ==

== ENCOUNTER 2023-06-06 06:00 | Outpatient (RCR) | payer MEDICARE, OTHER, SELFPAY | END 2023-07-06 23:59 | disposition home or self-care (01) | LOC: SPT 06:00 | PROVIDERS: PCP Family Medicine; Visit Provider Nurse Practitioner Family | DX: I69.320 Aphasia following cerebral infarction (principal); R47.01 Aphasia | CPT/HCPCS: 97110; 97116; 97530 ==

== ENCOUNTER 2023-06-06 06:00 | Outpatient (RCR) | payer MEDICARE, OTHER, SELFPAY | END 2023-07-06 23:59 | disposition home or self-care (01) | LOC: SST 06:00 | PROVIDERS: PCP Family Medicine; Visit Provider Nurse Practitioner Family | DX: I69.320 Aphasia following cerebral infarction (principal) | CPT/HCPCS: 92507 ==

== ENCOUNTER → 2023-06-16 14:34 | Outpatient (BNVA) | payer MEDICARE, OTHER, SELFPAY | PROVIDERS: PCP Family Medicine; Visit Provider Psychiatry & Neurology Neurology | DX: G93.40 Encephalopathy, unspecified (principal); G45.9 Transient cerebral ischemic attack, unspecified | CPT/HCPCS: 99212 ==

== ENCOUNTER 2023-07-07 06:00 | Outpatient (RCR) | payer MEDICARE, OTHER, SELFPAY | END 2023-08-05 23:59 | disposition home or self-care (01) | LOC: SST 06:00 | PROVIDERS: PCP Family Medicine; Visit Provider Nurse Practitioner Family | DX: I69.320 Aphasia following cerebral infarction (principal) | CPT/HCPCS: 92507 ==

== ENCOUNTER 2023-07-07 06:00 | Outpatient (RCR) | payer MEDICARE, OTHER, SELFPAY | END 2023-08-05 23:59 | disposition home or self-care (01) | LOC: SPT 06:00 | PROVIDERS: PCP Family Medicine; Visit Provider Nurse Practitioner Family | DX: I69.320 Aphasia following cerebral infarction (principal); I69.351 Hemiplegia and hemiparesis following cerebral infarction affecting right dominant side | CPT/HCPCS: 97110; 97530 ==

== ENCOUNTER 2023-07-07 06:00 | Outpatient (RCR) | payer MEDICARE, OTHER, SELFPAY | END 2023-08-05 23:59 | disposition home or self-care (01) | LOC: SOT 06:00 | PROVIDERS: PCP Family Medicine; Visit Provider Nurse Practitioner Family | DX: I69.351 Hemiplegia and hemiparesis following cerebral infarction affecting right dominant side (principal); I63.412 Cerebral infarction due to embolism of left middle cerebral artery; M62.838 Other muscle spasm; I69.320 Aphasia following cerebral infarction | CPT/HCPCS: 92507; 97110; 97112; 97166; 97530; L3807 ==

== ENCOUNTER 2023-08-06 06:00 | Outpatient (RCR) | payer MEDICARE, OTHER, SELFPAY | END 2023-09-05 23:59 | disposition home or self-care (01) | LOC: TST 06:00 | PROVIDERS: Visit Provider Nurse Practitioner Family | DX: I69.320 Aphasia following cerebral infarction (principal) | CPT/HCPCS: 92523 ==

== ENCOUNTER 2023-08-06 06:00 | Outpatient (RCR) | payer MEDICARE, OTHER, SELFPAY | END 2023-09-05 23:59 | disposition home or self-care (01) | LOC: SOT 06:00 | PROVIDERS: PCP Family Medicine; Visit Provider Nurse Practitioner Family | DX: I69.351 Hemiplegia and hemiparesis following cerebral infarction affecting right dominant side (principal) | CPT/HCPCS: 97110; 97166 ==

== ENCOUNTER 2023-08-06 06:00 | Outpatient (RCR) | payer MEDICARE, OTHER, SELFPAY | END 2023-09-05 23:59 | disposition home or self-care (01) | LOC: SPT 06:00 | PROVIDERS: PCP Family Medicine; Visit Provider Nurse Practitioner Family | DX: I69.351 Hemiplegia and hemiparesis following cerebral infarction affecting right dominant side (principal); I63.412 Cerebral infarction due to embolism of left middle cerebral artery; M62.838 Other muscle spasm | CPT/HCPCS: 97110 ==

== ENCOUNTER 2023-09-06 06:00 | Outpatient (RCR) | payer MEDICARE, OTHER, SELFPAY | END 2023-10-06 23:59 | disposition home or self-care (01) | LOC: SOT 06:00 | PROVIDERS: PCP Family Medicine; Visit Provider Nurse Practitioner Family | DX: I69.351 Hemiplegia and hemiparesis following cerebral infarction affecting right dominant side (principal); I63.412 Cerebral infarction due to embolism of left middle cerebral artery; M62.838 Other muscle spasm | CPT/HCPCS: 97110; 97112 ==

== ENCOUNTER 2023-10-07 06:00 | Outpatient (RCR) | payer MEDICARE, OTHER, SELFPAY | END 2023-11-04 23:59 | disposition home or self-care (01) | LOC: SST 06:00 | PROVIDERS: PCP Family Medicine; Visit Provider Nurse Practitioner Family | DX: I69.320 Aphasia following cerebral infarction (principal) | CPT/HCPCS: 92507 ==

== ENCOUNTER 2023-10-07 06:00 | Outpatient (RCR) | payer MEDICARE, OTHER, SELFPAY | END 2023-11-04 23:59 | disposition home or self-care (01) | LOC: SOT 06:00 | PROVIDERS: PCP Family Medicine; Visit Provider Nurse Practitioner Family | DX: I69.351 Hemiplegia and hemiparesis following cerebral infarction affecting right dominant side (principal) | CPT/HCPCS: 97110; 97168 ==

== ENCOUNTER 2023-10-07 06:00 | Outpatient (RCR) | payer MEDICARE, OTHER, SELFPAY | END 2023-11-04 23:59 | disposition home or self-care (01) | LOC: TST 06:00 | PROVIDERS: PCP Family Medicine; Visit Provider Nurse Practitioner Family | DX: I69.320 Aphasia following cerebral infarction (principal) | CPT/HCPCS: 92507 ==

== ENCOUNTER 2023-11-05 06:00 | Outpatient (RCR) | payer MEDICARE, OTHER, SELFPAY | END 2023-12-05 23:59 | disposition home or self-care (01) | LOC: SOT 06:00 | PROVIDERS: PCP Family Medicine; Visit Provider Nurse Practitioner Family | DX: I69.951 Hemiplegia and hemiparesis following unspecified cerebrovascular disease affecting right dominant side (principal); I63.412 Cerebral infarction due to embolism of left middle cerebral artery; M62.838 Other muscle spasm; I69.320 Aphasia following cerebral infarction | CPT/HCPCS: 92507; 97110; 97168 ==

== ENCOUNTER 2023-11-05 06:00 | Outpatient (RCR) | payer MEDICARE, OTHER, SELFPAY | END 2023-12-05 23:59 | disposition home or self-care (01) | LOC: SST 06:00 | PROVIDERS: PCP Family Medicine; Visit Provider Nurse Practitioner Family | DX: I69.320 Aphasia following cerebral infarction (principal) | CPT/HCPCS: 92507 ==

== ENCOUNTER 2023-12-06 06:00 | Outpatient (RCR) | payer MEDICARE, OTHER, SELFPAY | END 2024-01-04 23:59 | disposition home or self-care (01) | LOC: SOT 06:00 | PROVIDERS: PCP Family Medicine; Visit Provider Nurse Practitioner Family | DX: I69.351 Hemiplegia and hemiparesis following cerebral infarction affecting right dominant side (principal); I63.412 Cerebral infarction due to embolism of left middle cerebral artery; M62.838 Other muscle spasm; I69.320 Aphasia following cerebral infarction | CPT/HCPCS: 92507; 97110 ==

== ENCOUNTER 2023-12-06 06:00 | Outpatient (RCR) | payer MEDICARE, OTHER, SELFPAY | END 2024-01-04 23:59 | disposition home or self-care (01) | LOC: SST 06:00 | PROVIDERS: PCP Family Medicine; Visit Provider Nurse Practitioner Family | DX: I69.320 Aphasia following cerebral infarction (principal) | CPT/HCPCS: 92507 ==

== ENCOUNTER 2024-01-05 06:00 | Outpatient (RCR) | payer MEDICARE, OTHER, SELFPAY | END 2024-02-04 23:59 | disposition home or self-care (01) | LOC: SOT 06:00 | PROVIDERS: PCP Family Medicine; Visit Provider Nurse Practitioner Family | DX: I69.351 Hemiplegia and hemiparesis following cerebral infarction affecting right dominant side (principal); I63.412 Cerebral infarction due to embolism of left middle cerebral artery; M62.838 Other muscle spasm | CPT/HCPCS: 97110; 97112; 97168 ==

== ENCOUNTER 2024-01-05 06:00 | Outpatient (RCR) | payer MEDICARE, OTHER, SELFPAY | END 2024-02-04 23:59 | disposition home or self-care (01) | LOC: SST 06:00 | PROVIDERS: PCP Family Medicine; Visit Provider Nurse Practitioner Family | DX: I69.320 Aphasia following cerebral infarction (principal) | CPT/HCPCS: 92507 ==

== ENCOUNTER 2024-02-05 06:00 | Outpatient (RCR) | payer MEDICARE, OTHER, SELFPAY | END 2024-03-05 23:59 | disposition home or self-care (01) | LOC: SST 06:00 | PROVIDERS: PCP Family Medicine; Visit Provider Nurse Practitioner Family | DX: I69.320 Aphasia following cerebral infarction (principal) | CPT/HCPCS: 92507 ==

== ENCOUNTER 2024-02-05 06:00 | Outpatient (RCR) | payer MEDICARE, OTHER, SELFPAY | END 2024-03-05 23:59 | disposition home or self-care (01) | LOC: SOT 06:00 | PROVIDERS: PCP Family Medicine; Visit Provider Nurse Practitioner Family | DX: I69.351 Hemiplegia and hemiparesis following cerebral infarction affecting right dominant side (principal); I63.412 Cerebral infarction due to embolism of left middle cerebral artery; M62.838 Other muscle spasm | CPT/HCPCS: 97110; 97112 ==

== ENCOUNTER 2024-03-06 06:00 | Outpatient (RCR) | payer MEDICARE, OTHER, SELFPAY | END 2024-04-05 23:59 | disposition home or self-care (01) | LOC: SOT 06:00 | PROVIDERS: PCP Family Medicine; Visit Provider Nurse Practitioner Family | DX: I69.351 Hemiplegia and hemiparesis following cerebral infarction affecting right dominant side (principal) | CPT/HCPCS: 97110 ==

== ENCOUNTER 2024-03-06 06:00 | Outpatient (RCR) | payer MEDICARE, OTHER, SELFPAY | END 2024-04-05 23:59 | disposition home or self-care (01) | LOC: SST 06:00 | PROVIDERS: PCP Family Medicine; Visit Provider Nurse Practitioner Family | DX: I69.320 Aphasia following cerebral infarction (principal) | CPT/HCPCS: 92507 ==

== ENCOUNTER 2024-04-06 06:00 | Outpatient (RCR) | payer MEDICARE, OTHER, SELFPAY | END 2024-05-06 23:59 | disposition home or self-care (01) | LOC: SOT 06:00 | PROVIDERS: PCP Family Medicine; Visit Provider Nurse Practitioner Family | DX: I69.351 Hemiplegia and hemiparesis following cerebral infarction affecting right dominant side (principal); I63.412 Cerebral infarction due to embolism of left middle cerebral artery; M62.838 Other muscle spasm | CPT/HCPCS: 97110 ==

== ENCOUNTER 2024-04-06 06:00 | Outpatient (RCR) | payer MEDICARE, OTHER, SELFPAY | END 2024-05-06 23:59 | disposition home or self-care (01) | LOC: SST 06:00 | PROVIDERS: PCP Family Medicine; Visit Provider Nurse Practitioner Family | DX: I69.320 Aphasia following cerebral infarction (principal) | CPT/HCPCS: 92507 ==